=== PATIENT | male | born 1960 | race Caucasian/White ===

== ENCOUNTER 2017-11-30 17:28 | Inpatient (IN) ==
[2017-11-30] MEDS ORDERED: 0.9 % Sodium Chloride 1,000 ML IVC SCH (22:30)
[2017-11-30] MEDS ORDERED: Naloxone 0.4 MG/ML INJ IVP PRN (23:00)
[2017-11-30 23:17] LABS: ABG Base Excess 3 mEq/L (-2 to 3); ABG HCO3 27 mEq/L (21-27); ABG Oxygen Saturation 94 % (95-98); ABG PCO2 41 mmHg (35-45); ABG PH 7.43 pH Units (7.32-7.45); ABG PO2 69 mmHg (85-104); ABG TCO2 29 mEq/L (20-26)
[2017-11-30 23:21] LABS: BUN/Creatinine Ratio 15 (6-26); Blood Urea Nitrogen 9 mg/dL (6-20); Carbon Dioxide 27 mEq/L (23-29); Chloride 86 mEq/L (98-107); Glucose 78 mg/dL (70-105); Osmolality,Calculated 240 (280-300); Potassium 3.7 mEq/L (3.5-5.1); Sodium 116 mEq/L (136-145); eGFR For African Americans > 60 (> 60); eGFR For Non-African Americans > 60 (> 60)
[2017-11-30] MEDS ORDERED: Dextrose Gel 15 GM/37.5 ML TUBE PO PRN ×2 (23:42)
[2017-11-30] MEDS ORDERED: *HR* Dextrose 50 % in Water (Syg) 50 ML SYRINGE IVP PRN (23:42)
[2017-11-30] MEDS ORDERED: D5% in Water 1,000 ML IVC PRN (23:42)
[2017-11-30] MEDS ORDERED: Ipratropium/Albuterol Neb 3 ML IH ONE (23:46)
--- NOTE | 2017-11-30 23:49 | Internal Med History&Physical ---
<Mariano Wu - Last Filed: 12/01/17 01:46> Date of Encounter: 12/01/17 Time of Encounter: 22:30 Assessment and Plan (1) Acute encephalopathy Current visit: Yes Status: Acute acute encephalopathy likely secondary to hyponatremia versus other metabolic derangements Patient is confused and dizzy, not accompanied by any person to corroborate baseline mental status Initial head CT negative, sodium appears chronically low for the past 4 months, however slightly lower than his normal There are no obvious signs of infection or other organic causes We will monitor the patient's vitals, get an ABG, BMP every 6 hours, avoid psychoactive medications The patient will remain nothing by mouth pending speech eval for swallow study in the morning We will attempt to contact shelter in the morning for further clarification. 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 , however he has received no formal workup at this time We will check urine electrolytes, check BMP every 6 hours We will begin the patient on normal saline at a low rate with cold of sodium correction <8mmol in 24h The patient will be nothing by mouth pending swallow study for altered mental status, however then he will be placed on fluid restriction diet for SIADH We will continue home meds including salt tabs and urea Every 4 hours vitals (3) Neutropenia Current visit: Yes Status: Acute Neutropenia without fever, ANC 120 likely secondary to recent initiation of chemotherapy Although the patient is neutropenic, he does not appear to have neutropenia on his previous labs several days ago The patient has no indication of infection at this time, however we will institute neutropenic protocol for precautions At this time, antibiotic prophylaxis is not necessarily recommended due to the short length of time in which he may remain neutropenic We will seek recommendations from oncology Qualifiers: Neutropenia type: other drug-induced Qualified Code(s): D70.2 - Other drug- induced agranulocytosis (4) Lung cancer Current visit: Yes Status: Acute 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 She was managed by medical nephrology, recently began chemotherapy This is likely the source of the patient's hyponatremia, chemotherapy is likely the source of neutropenia We will consult oncology for comanagement in the morning Qualifiers: Laterality: left Lung location: overlapping sites Qualified Code(s): C34.82 - Malignant neoplasm of overlapping sites of left bronchus and lung (5) DVT prophylaxis Current visit: Yes Status: Acute SCDs because patient is thrombocytopenic and cannot tolerate heparin (6) Code status needs review Current visit: Yes Status: Acute Patient remains confused at time of exam. There are no parties present that can elaborate his wishes, and the patient is unable to do so with competence. This topic should be revisited at the patient regains full orientation and mental status, or if evidence of a living will or advanced directive is found. Internal Medicine - H&P: HPI Chief complaint: AMS Admitted From: Emergency Dept Plans for Post Hospital Care: Home History of present illness: Mr. Vasques is a 57 year old male with history of stage IV small cell lung cancer, prior squamous cell carcinoma of the lung, skin cancer which has since been excised, schizophrenia and multiple psychiatric concerns, recent admission for hyponatremia and neutropenia, recent initiation of chemotherapy for small cell lung cancer who presents to the [facility] at the recommendation of his oncologist Dr. Iraheta. According to oncology note the patient began chemotherapy approximately one half weeks ago. He presented to the ED today with altered status not fully understanding why he was there, and some generalized weakness and fatigue. The patient is a long-term member of a shelter. He is not capable of providing a thorough history of present illness. He has no person accompanying him to be able to give information about his case. He has no acute complaints, and says that he's here because of a "misunderstanding". Past Med Surg Social Fam HX - Past Medical History Medical history: arthritis, asthma, cancer, COPD, diabetes, GERD, hypertension, other Psychiatric history: anxiety, depression, panic disorder, PTSD, schizophrenia - Past Surgical History Surgical History: no surgical history, other - Social History Smoking Status: Current every day smoker Smokeless Tobacco Status: Yes Alcohol use: none Drug use: none Internal Medicine - H&P: Meds Albuterol Sulfate [Albuterol Inhaler] 2 puff IH Q6HR 07/21/17 [History] Aspirin [Lo-Dose Aspirin EC] 81 mg PO DAILY 07/21/17 [History] Benztropine Mesylate 1 mg PO BID 07/21/17 [History] Bisacodyl [Dulcolax] 10 mg PO DAILY 07/21/17 [History] Budesonide/Formoterol 160/4.5 [Symbicort 160/4.5] 2 puff IH BIDR 07/21/17 [ History] Cyclobenzaprine HCl 10 mg PO BID 07/21/17 [History] Divalproex (24 HR) [Depakote ER (24 HR)] 1,500 mg PO DAILY 07/21/17 [History] Docusate Sodium [Colace] 200 mg PO TID 07/21/17 [History] Furosemide [Lasix] 40 mg PO DAILY 07/21/17 [History] Lactulose [Enulose] 15 ml PO DAILY 07/21/17 [History] Lisinopril 2.5 mg PO DAILY 07/21/17 [History] Metformin HCl [Glucophage] 500 mg PO BID 07/21/17 [History] Omeprazole [PriLOSEC] 20 mg PO DAILY 07/21/17 [History] Pravastatin Sodium 10 mg PO DAILY 07/21/17 [History] Quetiapine Fumarate [Quetiapine Fumarate ER] 600 mg PO DAILY 07/21/17 [History] RisperiDONE MICROSPHERES [Risperdal Consta] 50 mg IM Q2W 07/21/17 [History] Tamsulosin HCl [Flomax] 0.4 mg PO DAILY 07/21/17 [History] Magnesium Citrate [Citroma] 296 ml PO QWEEK PRN 10/02/17 [History] Multivit-Min/Iron Fum/Folic AC [Tlsrh-Ursqjns-Cpnefeat Tablet] 1 each PO DAILY 10/02/17 [History] Naproxen [Naprosyn] 500 mg PO BID PRN 10/02/17 [History] Testosterone [Fortesta] 60 gm TD DAILY 10/21/17 [History] Urea [[place] Lo 40] 236.6 ml TP DAILY 10/21/17 [History] Dexamethasone [Decadron] 4 mg PO BID #36 tab 11/05/17 [Rx] Magic Mouthwash [Magic Mouthwash BLM] 10 ml PO QID PRN #240 ml 11/05/17 [Rx] Ondansetron [Zofran] 8 mg PO Q8HR #60 tablet 11/05/17 [Rx] Prochlorperazine Maleate [Compazine] 10 mg PO Q8HR PRN #60 tablet 11/05/17 [Rx] Lidocaine/Prilocaine [Emla] 1 appl TP AD PRN #30 gm 11/18/17 [Rx] Sodium Chloride 1,000 mg MC BID #60 tablet.chasity 11/26/17 [Rx] 3 Allergy/AdvReac Type Severity Reaction Status Date / Time No Known Allergies Allergy Verified 11/30/17 11:19 ROS unobtainable: due to mental status All Systems PM: A 10-system review of systems was performed and is negative for pertinent findings except as documented above in the HPI. - Constitutional Vitals: Temp Pulse Resp BP Pulse Ox 98.1 F 88 18 128/79 97 11/30/17 21:03 11/30/17 21:03 11/30/17 21:03 11/30/17 21:03 11/30/17 21:03 Exam: Gen: Vitals noted. No acute distress. AAOx3, but still confused HEENT: oropharynx clear, Normocephalic, atraumatic. Neck: Supple. No obvious adenopathy. Cardiac: RRR, no murmur, +S1/S2 Pulmonary: Diffuse wheezing with decreased lung sounds in the left lower lung. Abdomen: soft, mildly distended, no masses felt on palpation. There is no fluid wave noted. Non-tender to palpatiomn MSK: ROM intact, no joint swelling noted Extremities: no cyanosis or clubbing, 2+ edema in LEs b/l Neuro: A&Ox3, moves all extremities, no focal deficits, pleasantly confused Psych: Flat affect, pleasantly confused Internal Med - H&P Results - Labs CBC & Chem 7: 11/30/17 22:50 Labs: BMP 11/30/17 22:50 Sodium 116 L* Potassium 3.7 Chloride 86 L Carbon Dioxide 27 BUN 9 Creatinine 0.62 L Glucose 78 Calcium 8.0 L - ABG Interpretation ABG results: 11/30/17 23:14 ABG pH 7.43 ABG pCO2 41 ABG pO2 69 L ABG HCO3 27 ABG Total CO2 29 H ABG O2 Saturation 94 L ABG Base Excess 3 <Jessica Santiago - Last Filed: 12/01/17 03:16> Date of Encounter: 12/01/17 Internal Medicine - H&P: HPI History of present illness: Mr. Vasques is a 57 year old male All Systems PM: A 10-system review of systems was performed and is negative for pertinent findings except as documented above in the HPI. - Constitutional Vitals: Temp Pulse Resp BP Pulse Ox 98.1 F 89 17 121/73 92 11/30/17 23:59 11/30/17 23:59 12/01/17 01:00 11/30/17 23:59 12/01/17 01:00 Internal Med - H&P Results - Labs CBC & Chem 7: 11/30/17 22:50 Labs: BMP 11/30/17 22:50 Sodium 116 L* Potassium 3.7 Chloride 86 L Carbon Dioxide 27 BUN 9 Creatinine 0.62 L Glucose 78 Calcium 8.0 L - ABG Interpretation ABG results: 11/30/17 23:14 ABG pH 7.43 ABG pCO2 41 ABG pO2 69 L ABG HCO3 27 ABG Total CO2 29 H ABG O2 Saturation 94 L ABG Base Excess 3 - Impressions ITS Impressions Head CT 11/30/17 22:27 IMPRESSION: No acute intracranial abnormality. D/ / Darlene Chin Cha, MD / Darlene Chin Cha, MD Interpreting Provider: Darlene Chin Cha, MD - Attending Attestation I have seen and examined this patient independently. I have discussed with resident physician Dr. Wu regarding the management plan. Agree with the documentation.
[2017-12-01] MEDS: Ondansetron ODT 4 MG TAB.RAPDIS PO SCH ×3 (00:17→18:45)
[2017-12-01 05:45] LABS: Mean Corpuscular Volume 83.4 fL (83.0-100.0)
[2017-12-01 05:47] LABS: Hematocrit 25.6 % (37.5-50.1); Hemoglobin 8.7 g/dL (12.9-16.9); Mean Corpuscular Hemoglobin 28.3 pg (28.0-33.3); Mean Platelet Volume 10.5 fL (9.4-12.4); Monocytes # 0.1 K/mcL (0.0-1.3); Red Blood Count 3.07 M/mcL (4.19-5.50); Red Cell Distribution Width 14.6 % (11.5-14.5)
[2017-12-01 05:54] LABS: Platelet Count 32 K/mcL (140-400)
[2017-12-01 06:17] LABS: BUN/Creatinine Ratio 19 (6-26); Blood Urea Nitrogen 11 mg/dL (6-20); Calcium 8.3 mg/dL (8.6-10.3); Carbon Dioxide 26 mEq/L (23-29); Chloride 87 mEq/L (98-107); Glucose 79 mg/dL (70-105); Osmolality,Calculated 242 (280-300); Potassium 3.8 mEq/L (3.5-5.1); Sodium 117 mEq/L (136-145); eGFR For African Americans > 60 (> 60); eGFR For Non-African Americans > 60 (> 60)
[2017-12-01 06:25] LABS: Lymphocytes # 0.8 K/mcL (0.6-4.6); Neutrophils # 0.4 K/mcL (1.6-8.9); Platelet Estimate Decreased (Normal)
[2017-12-01] MEDS: Insulin LISPRO 300 UNITS/3 ML VIAL SQ SCH ×4 (07:30→22:09)
[2017-12-01] MEDS ORDERED: UREA TP SCH (09:00)
[2017-12-01] MEDS ORDERED: Acetaminophen 325 MG TABLET PO PRN (10:09)
[2017-12-01] MEDS: Budesonide/Formoterol 160/4.5 MDI IH SCH ×2 (10:28→20:22)
[2017-12-01] MEDS: Furosemide 40 MG TABLET PO SCH (10:59)
[2017-12-01] MEDS: Lactulose Oral Soln 20 GM/30 ML UDC PO SCH (10:59)
[2017-12-01] MEDS: Aspirin Enteric Coated 81 MG Tablet PO SCH (11:01)
[2017-12-01] MEDS: Divalproex (24 HR) 500 MG TABLET PO SCH (11:01)
--- NOTE | 2017-12-01 11:02 | Internal Med Progress Note ---
Date of Encounter: 12/01/17 Time of Encounter: 10:59 - Assessment and plan (1) Acute encephalopathy Current Visit: Yes Status: Acute Assessment and plan: Metablolic encephalopathy. Seems to have resolved now. Likely due to hyponatremia. CT head is negative. We will continue to monitor. (2) Hyponatremia Current Visit: Yes Status: Acute Assessment and plan: Likely secondary to SIADH. Patient seems to have had issues with hyponatremia lately although it is not as bad as this hospitalization. We will stop IV fluids. He has salt tabs ordered. Apparently he takes that at home and I am not sure if she was taking it. Will put patient on fluid strictures. Consult nephrology. Follow up on rest of workup including urine sodium and urine osmolality. We will check sodium every 6 hours. (3) Neutropenia Current Visit: Yes Status: Acute Assessment and plan: Likely secondary to chemotherapy. ANC is low and noted. Afebrile. We will leave any prophylactic antibiotics recommendations to oncology. Qualifiers: Neutropenia type: other drug-induced Qualified Code(s): D70.2 - Other drug- induced agranulocytosis (4) Lung cancer Current Visit: Yes Status: Acute Assessment and plan: Follows up with oncology. They have been counseled patient. The patient has stage IV cancer. He is already on chemotherapy. Qualifiers: Laterality: left Lung location: overlapping sites Qualified Code(s): C34.82 - Malignant neoplasm of overlapping sites of left bronchus and lung (5) Diabetes Current Visit: Yes Status: Acute Assessment and plan: Continue insulin sliding scale. Continue Accu-Cheks. Qualifiers: Diabetes mellitus type: type 2 Diabetes mellitus complication status: without complication Diabetes mellitus shelter insulin use: without termination clerk use Qualified Code(s): E11.9 - Type 2 diabetes mellitus without complications (6) Hypertension Current Visit: Yes Status: Acute Assessment and plan: The pressure stable. Continue lisinopril. Qualifiers: Hypertension type: essential hypertension Qualified Code(s): I10 - Essential (primary) hypertension (7) DVT prophylaxis Current Visit: Yes Status: Acute Assessment and plan: Platelets are 32. We will put the patient in SCDs. - Subjective Interval history: Patient was seen and examined. Admitted yesterday with what sounds like confusion. Found to have hyponatremia. Has a history of small cell lung cancer with metastasis. Recently started chemotherapy. Denies any pain. Afebrile. No acute events. - Constitutional Vitals: Temp Pulse Resp BP Pulse Ox 97.7 F 81 18 121/80 94 12/01/17 07:02 12/01/17 07:02 12/01/17 10:32 12/01/17 07:02 12/01/17 10:32 Exam: GEN: NAD CVS: RRR. S1, S2, No m/r/g RESP: CTAB ABD: Soft, NT, ND, +BS EXT: No edema. 2+ DP. No rashes NEURO: Nonfocal Internal Medicine: Result - Labs CBC & Chem 7: 12/01/17 05:01 12/01/17 12:36 Labs: Short CBC 12/01/17 Range/Units 05:01 WBC 1.3 L D (4.3-11.1) K/mcL Hgb 8.7 L (12.9-16.9) g/dL Hct 25.6 L (37.5-50.1) % Plt Count 32 L (140-400) K/mcL Neutrophils # 0.4 L (1.6-8.9) K/mcL BMP 11/30/17 12/01/17 22:50 05:01 Sodium 116 L* 117 L* Potassium 3.7 3.8 Chloride 86 L 87 L Carbon Dioxide 27 26 BUN 9 11 Creatinine 0.62 L 0.59 L Glucose 78 79 Calcium 8.0 L 8.3 L - ABG Interpretation ABG results: ABG ABG pH 7.43 pH Units (7.32-7.45) 11/30/17 23:14 ABG pCO2 41 mmHg (35-45) 11/30/17 23:14 ABG pO2 69 mmHg (85-104) L 11/30/17 23:14 ABG O2 Saturation 94 % (95-98) L 11/30/17 23:14 - Impressions Impressions Head CT 11/30/17 22:27 IMPRESSION: No acute intracranial abnormality. D/ / Darlene Chin Cha, MD / Darlene Chin Cha, MD Interpreting Provider: Darlene Chin Cha, MD Consult Discharge Plan - Plan [facility]: [facility] [Primary Care Provider[facility] -
[2017-12-01 11:49] LABS: BUN/Creatinine Ratio 18 (6-26); Blood Urea Nitrogen 11 mg/dL (6-20); Calcium 8.5 mg/dL (8.6-10.3); Carbon Dioxide 28 mEq/L (23-29); Chloride 85 mEq/L (98-107); Glucose 111 mg/dL (70-105); Osmolality,Calculated 242 (280-300); Potassium 3.7 mEq/L (3.5-5.1); Sodium 116 mEq/L (136-145); eGFR For African Americans > 60 (> 60); eGFR For Non-African Americans > 60 (> 60)
--- NOTE | 2017-12-01 13:39 | Oncology Inp Consult Note ---
<Mirna Koo L - Last Filed: 12/01/17 16:38> Date of Encounter: 12/01/17 Time of Encounter: 13:39 Assessment and Plan (1) Lung cancer Status: Acute Assessment and plan: He is s/p C1 chemotherapy 11/18/17 with carbo/VP16 and neulasta received on 11/24 Pancytopenia secondary to chemotherapy treatment, neutrophils 0.4, no s/s infection and afebrile. NO role for ATB treatment at this current time. Continue to monitor counts and need for potential transfusions Admitted with AMS/acute encephalopathy, hyponatremia and pancytopenia. Hyponatremia-Na 116. reviewed nephrology consult, currently receiving sodium chloride tabs 1 gram BID, continue to replace. Awaiting: Urine sodium and urine osmolarity, TSH, cortisol level, UA, serum osmolarity, and uric acid Likely secondary to carboplatin and presumed SIADH associated with SCLC CT head 11/30/17 No acute intracranial abnormality. CXR shows grossly similar appearance of a left suprahilar and right base opacity with no new focal consolidations or pleural effusions. Please refer to Dr. Dumont attestation below for further details Qualifiers: Laterality: left Lung location: overlapping sites Qualified Code(s): C34.82 - Malignant neoplasm of overlapping sites of left bronchus and lung - Data of Consult Patient: known to practice within the last 3 years Consult date: 12/01/17 Requesting Physician: Dot Valencia MD Primary Care Provider: PCP [place] - Consult Narrative Reason for consult: metastatic small cell lung cancer s/p bx of adrenal gland History of present illness: Mr. Vasques is a 57 year old male with past medical history siginifcant for arthritis, asthma, lung cancer-(squamous cell carcinoma)-s/p RT in 2016 at [facility], COPD, hypertension, anxiety, depression, panic disorder, PTSD, schizophrenia. He reports he has schizophrenia and follows with mental health personnel at the [facility]. He is a current everyday smoker denies alcohol and recreational drug use use. Patient of Dr. Iraheta with newly diagnosed small cell lung cancer. He lives in a senior living in [place], [place]. He was hospitalized in Oct 2017 with leukocytosis, hyponatremia and feeling generally weak. He underwent a CT scan of the chest at that visit, CT angiogram 10/18 showed left lung mass as well as amorphous soft, enlargement of left hilar and mediastinal lymph nodes as well as development of left adrenal gland metastasis.Indeterminate right hepatic lobe lesion several tiny left upper subcentimeter nodules, inflammatory or neoplastic. MRI brain no evidence for mets PET imaging--from [facility]--reviewed in tumor board, Left lung uptake , uptake mulpiple sites mediastinal abd adenoapthy, adrenal uptake and skeletal lesions. He has had 40 pound weight loss over the last 6 months. Very independent in ADLs. He had skin cancer removed from left side of his face and nasal area with disfigurement. Squamous cell cancer of skin in the earlobe, nasal area and back and the chest skin area. He underwent CT guided bx adrenal gland that showed features of small cell lung cancer. Immunostains pending. Final path is given as small cell lung cancer () He is s/p C1 chemotherapy 11/18/17 with carbo/VP16. Admitted with AMS/acute encephalopathy, hyponatremia and pancytopenia. Past Med Surg Social Fam HX - Past Medical History Medical history: arthritis, asthma, cancer, COPD, diabetes, GERD, hypertension, other Psychiatric history: anxiety, depression, panic disorder, PTSD, schizophrenia - Past Surgical History Surgical History: no surgical history, other - Social History Smoking Status: Current every day smoker Packs per day: 1 Smokeless Tobacco Status: Yes Alcohol use: none Drug use: none Medications and Allergies Albuterol Sulfate [Albuterol Inhaler] 2 puff IH Q6HR 07/21/17 [History] Aspirin [Lo-Dose Aspirin EC] 81 mg PO DAILY 07/21/17 [History] Benztropine Mesylate 1 mg PO BID 07/21/17 [History] Bisacodyl [Dulcolax] 10 mg PO DAILY 07/21/17 [History] Budesonide/Formoterol 160/4.5 [Symbicort 160/4.5] 2 puff IH BIDR 07/21/17 [ History] Cyclobenzaprine HCl 10 mg PO BID 07/21/17 [History] Divalproex (24 HR) [Depakote ER (24 HR)] 1,500 mg PO DAILY 07/21/17 [History] Docusate Sodium [Colace] 200 mg PO TID 07/21/17 [History] Furosemide [Lasix] 40 mg PO DAILY 07/21/17 [History] Lactulose [Enulose] 15 ml PO DAILY 07/21/17 [History] Lisinopril 2.5 mg PO DAILY 07/21/17 [History] Metformin HCl [Glucophage] 500 mg PO BID 07/21/17 [History] Omeprazole [PriLOSEC] 20 mg PO DAILY 07/21/17 [History] Pravastatin Sodium 10 mg PO DAILY 07/21/17 [History] Quetiapine Fumarate [Quetiapine Fumarate ER] 600 mg PO DAILY 07/21/17 [History] RisperiDONE MICROSPHERES [Risperdal Consta] 50 mg IM Q2W 07/21/17 [History] Tamsulosin HCl [Flomax] 0.4 mg PO DAILY 07/21/17 [History] Magnesium Citrate [Citroma] 296 ml PO QWEEK PRN 10/02/17 [History] Multivit-Min/Iron Fum/Folic AC [Jvago-Bvpvkad-Iayrywdg Tablet] 1 each PO DAILY 10/02/17 [History] Naproxen [Naprosyn] 500 mg PO BID PRN 10/02/17 [History] Testosterone [Fortesta] 60 gm TD DAILY 10/21/17 [History] Urea [[place] Lo 40] 236.6 ml TP DAILY 10/21/17 [History] Dexamethasone [Decadron] 4 mg PO BID #36 tab 11/05/17 [Rx] Magic Mouthwash [Magic Mouthwash BLM] 10 ml PO QID PRN #240 ml 11/05/17 [Rx] Ondansetron [Zofran] 8 mg PO Q8HR #60 tablet 11/05/17 [Rx] Prochlorperazine Maleate [Compazine] 10 mg PO Q8HR PRN #60 tablet 11/05/17 [Rx] Lidocaine/Prilocaine [Emla] 1 appl TP AD PRN #30 gm 11/18/17 [Rx] Sodium Chloride 1,000 mg MC BID #60 tablet.chasity 11/26/17 [Rx] 3 Allergy/AdvReac Type Severity Reaction Status Date / Time No Known Allergies Allergy Verified 11/30/17 11:19 ROS unobtainable: due to mental status Review of systems: ROS obtained but difficult due to mental status and patient is also quite fatigued at this time although he will arouse to voice for moments at time, Oncology - Exam - Constitutional Vitals: Temp Pulse Resp BP Pulse Ox 97.4 F L 87 16 93/60 96 12/01/17 11:47 12/01/17 11:47 12/01/17 11:47 12/01/17 11:47 12/01/17 11:47 General appearance: cooperative, no acute distress, no febrile - Head Head exam: Present: atraumatic - Respiratory Respiratory exam: Present: decreased breath sounds, wheezes. Absent: respiratory distress - Cardiovascular Cardiovascular exam: Present: RRR, +S1, +S2 - GI/Abdominal GI/Abdominal exam: Present: distended, normal bowel sounds, soft. Absent: tenderness - Extremities Exam Extremities exam: Present: pedal edema. Absent: calf tenderness Additional comments: 2-3+ BLE edema - Neurological Exam Neurological exam: Present: alert, no focal deficits, strengths equal and symetr throughout, speech deficit. Absent: facial droop Additional comments: oriented to person, reoriented to place/time. drowsy but will awake to voice. speech deficit is apparently unchanged according to previous reports, no focal weakness noted - Psychiatric Psychiatric exam: Present: flat affect - Skin Skin exam: Present: pallor, warm Oncology - Results Labs: Short CBC 12/01/17 Range/Units 05:01 WBC 1.3 L D (4.3-11.1) K/mcL Hgb 8.7 L (12.9-16.9) g/dL Hct 25.6 L (37.5-50.1) % Plt Count 32 L (140-400) K/mcL Neutrophils # 0.4 L (1.6-8.9) K/mcL BMP 11/30/17 12/01/17 12/01/17 22:50 05:01 10:36 Sodium 116 L* 117 L* 116 L* Potassium 3.7 3.8 3.7 Chloride 86 L 87 L 85 L Carbon Dioxide 27 26 28 BUN 9 11 11 Creatinine 0.62 L 0.59 L 0.62 L Glucose 78 79 111 H Calcium 8.0 L 8.3 L 8.5 L Consult Discharge Plan - Plan [facility]: [facility] Care Provider[facility] - <Thomas Gibbs - Last Filed: 12/02/17 08:51> Date of Encounter: 12/02/17 - Data of Consult Requesting Physician: Dot Valencia MD Primary Care Provider: [facility] - Consult Narrative History of present illness: Mr. Vasques is a 57 year old male knoiwn to us with small cell lung ca metastatic s /p C1 carbo/VP16 hospitalized for dizziness, low sodium. Sodium slowly improving on 0.9NS, supplementation, free water restriction-urine lytes per nephrology, recommendations appreciated. Cytopenia s/p neulasta in cliniuc. Will dose reduce with C2 Rx due to cytopenia. I examined this patient and my medical decision-making was reviewed with the Advanced Practice Nurse, Mirna Koo. I agree with the documented findings, disposition and treatment plan as described except to the extent set forth below. Oncology - Exam - Constitutional Vitals: Temp Pulse Resp BP Pulse Ox 97.3 F L 99 16 92/58 92 12/02/17 08:39 12/02/17 08:39 12/02/17 08:39 12/02/17 08:39 12/02/17 08:39 Oncology - Results Labs: Short CBC 12/02/17 Range/Units 02:57 WBC 1.0 L* (4.3-11.1) K/mcL Hgb 8.4 L (12.9-16.9) g/dL Hct 24.4 L (37.5-50.1) % Plt Count 36 L (140-400) K/mcL Neutrophils # 0.4 L (1.6-8.9) K/mcL BMP 12/01/17 12/01/17 12/01/17 10:36 12:36 18:26 Sodium 116 L* 117 L* 119 L* Potassium 3.7 Chloride 85 L Carbon Dioxide 28 BUN 11 Creatinine 0.62 L Glucose 111 H Calcium 8.5 L 12/02/17 02:57 Sodium 120 L* Potassium 3.9 Chloride 91 L Carbon Dioxide 28 BUN 10 Creatinine 0.81 Glucose 108 H Calcium 7.9 L Urine 12/01/17 Range/Units 20:46 Urine Color Yellow (Yellow) Urine Clarity Clear (Clear) Urine pH 7.0 (5.0-8.0) pH Units Ur Specific [place] 1.015 (1.010-1.025) Urine Protein Negative (Neg-Trace) mg/dL Urine Glucose (UA) Normal (Normal) mg/dL
--- NOTE | 2017-12-01 13:41 | Nephrology Consult Note ---
Addendum entered and electronically signed by Joana Mejia CNP 12/01/17 13: 49: Agree with salt tabs-continue Original Note: <Joana Mejia - Last Filed: 12/01/17 13:48> Date of Encounter: 12/01/17 Time of Encounter: 13:39 Assessment and Plan (1) Hyponatremia Status: Acute Na+ 116 History of chronic hyponatremia Need strict I/Os Agree with stopping IV saline fluids Urine sodium and urine osmolarity has been ordered-awaiting results Will obtain TSH, cortisol level, UA, serum osmolarity, and uric acid (2) Acute encephalopathy Status: Acute per primary team (3) Lung cancer Status: Acute per oncology team Qualifiers: Laterality: left Lung location: overlapping sites Qualified Code(s): C34.82 - Malignant neoplasm of overlapping sites of left bronchus and lung History of Present Illness - Reason for Consult Consult date: 12/01/17 - Chief Complaint hyponatremia, acute encephalopathy - History of Present Illness Mr. Vasques is a 57 year old male with history of stage IV small cell lung cancer, prior squamous cell carcinoma of the lung, skin cancer which has since been excised, schizophrenia and multiple psychiatric concerns, recent admission for hyponatremia and neutropenia, recent initiation of chemotherapy for small cell lung cancer who presents to the [place] ED with altered status, not fully understanding why he was there, and some generalized weakness and fatigue. The patient is a long-term member of a [employer]. He is not capable of providing a thorough history of present illness. Nephrology has been consulted for hyponatremia. Past Med Surg Social Fam HX - Past Medical History Medical history: arthritis, asthma, cancer, COPD, diabetes, GERD, hypertension, other Psychiatric history: anxiety, depression, panic disorder, PTSD, schizophrenia - Past Surgical History Surgical History: no surgical history, other - Social History Smoking Status: Current every day smoker Packs per day: 1 Smokeless Tobacco Status: Yes Alcohol use: none Drug use: none Medications and Allergies Albuterol Sulfate [Albuterol Inhaler] 2 puff IH Q6HR 07/21/17 [History] Aspirin [Lo-Dose Aspirin EC] 81 mg PO DAILY 07/21/17 [History] Benztropine Mesylate 1 mg PO BID 07/21/17 [History] Bisacodyl [Dulcolax] 10 mg PO DAILY 07/21/17 [History] Budesonide/Formoterol 160/4.5 [Symbicort 160/4.5] 2 puff IH BIDR 07/21/17 [ History] Cyclobenzaprine HCl 10 mg PO BID 07/21/17 [History] Divalproex (24 HR) [Depakote ER (24 HR)] 1,500 mg PO DAILY 07/21/17 [History] Docusate Sodium [Colace] 200 mg PO TID 07/21/17 [History] Furosemide [Lasix] 40 mg PO DAILY 07/21/17 [History] Lactulose [Enulose] 15 ml PO DAILY 07/21/17 [History] Lisinopril 2.5 mg PO DAILY 07/21/17 [History] Metformin HCl [Glucophage] 500 mg PO BID 07/21/17 [History] Omeprazole [PriLOSEC] 20 mg PO DAILY 07/21/17 [History] Pravastatin Sodium 10 mg PO DAILY 07/21/17 [History] Quetiapine Fumarate [Quetiapine Fumarate ER] 600 mg PO DAILY 07/21/17 [History] RisperiDONE MICROSPHERES [Risperdal Consta] 50 mg IM Q2W 07/21/17 [History] Tamsulosin HCl [Flomax] 0.4 mg PO DAILY 07/21/17 [History] Magnesium Citrate [Citroma] 296 ml PO QWEEK PRN 10/02/17 [History] Multivit-Min/Iron Fum/Folic AC [Qayxi-Tnlvztj-Snisxxtx Tablet] 1 each PO DAILY 10/02/17 [History] Naproxen [Naprosyn] 500 mg PO BID PRN 10/02/17 [History] Testosterone [Fortesta] 60 gm TD DAILY 10/21/17 [History] Urea [Nerissa Lo 40] 236.6 ml TP DAILY 10/21/17 [History] Dexamethasone [Decadron] 4 mg PO BID #36 tab 11/05/17 [Rx] Magic Mouthwash [Magic Mouthwash BLM] 10 ml PO QID PRN #240 ml 11/05/17 [Rx] Ondansetron [Zofran] 8 mg PO Q8HR #60 tablet 11/05/17 [Rx] Prochlorperazine Maleate [Compazine] 10 mg PO Q8HR PRN #60 tablet 11/05/17 [Rx] Allopurinol [Zyloprim 100 MG] 300 mg PO DAILY 12/02/17 [History] Tolvaptan [Samsca] 15 mg PO DAILY #30 tablet 12/07/17 [Rx] levoFLOXacin [Levaquin] 500 mg PO DAILY #3 tablet 12/07/17 [Rx] 3 Allergy/AdvReac Type Severity Reaction Status Date / Time No Known Allergies Allergy Verified 11/30/17 11:19 Review of Systems All Systems: reviewed and no additional remarkable complaints except as stated Constitutional: fatigue, weakness Cardiovascular: no chest pain, no dyspnea Gastrointestinal: no diarrhea, no vomiting Neurological: behavioral changes, confusion Exam - Vital Signs Vital signs: Initial Vital Signs Temp Pulse Resp BP Pulse Ox 98.1 F 88 18 128/79 97 11/30/17 21:03 11/30/17 21:03 11/30/17 21:03 11/30/17 21:03 11/30/17 21:03 Vital Signs - Last 8 Hours Temp Pulse Resp BP Pulse Ox 12/01/17 11:47 97.4 F L 87 16 93/60 96 12/01/17 10:32 18 94 12/01/17 07:02 97.7 F 81 17 121/80 96 Intake and Output 11/30/17 12/01/17 12/01/17 23:59 07:59 15:59 Intake Total 0 / 0 Balance 0 / 0 Intake: Oral 0 / 0 Other: Meal npo Weight 85.757 kg Blood Glucose* 79 74 107 - General Appearance General appearance: chronically ill, frail EENT: ATNC Neck: supple Respiratory: clear Cardiology: edema, normal S1, normal S2 Gastrointestinal: no guarding Integumentary: warm and dry Neurologic: confused, aphasic Results - Lab Results 12/01/17 05:01 12/01/17 12:36 Most recent lab results ABG pH 7.43 pH Units (7.32-7.45) 11/30/17 23:14 ABG pCO2 41 mmHg (35-45) 11/30/17 23:14 ABG pO2 69 mmHg (85-104) L 11/30/17 23:14 ABG HCO3 27 mEq/L (21-27) 11/30/17 23:14 ABG O2 Saturation 94 % (95-98) L 11/30/17 23:14 Calcium 8.5 mg/dL (8.6-10.3) L 12/01/17 10:36 Consult Discharge Plan - Plan Instructions: Hyponatremia (DC), Chronic Hypertension (DC) Additional Instructions: 1.5 L Fluid restriction F/u with nephrology next week. Check labs on Referrals: Cameron Stanton MD [Partnered Physician] - (1 week) [facility] - 12/16/17 10:45 am (Please follow up as schedule...) Prescriptions: levoFLOXacin [Levaquin] 500 mg PO DAILY #3 tablet Tolvaptan [Samsca] 15 mg PO DAILY #30 tablet <Loly Garcia - Last Filed: 12/09/17 13:36> Date of Encounter: 12/01/17 Exam - Vital Signs Vital signs: Initial Vital Signs Temp Pulse Resp BP Pulse Ox 98.1 F 88 18 128/79 97 11/30/17 21:03 11/30/17 21:03 11/30/17 21:03 11/30/17 21:03 11/30/17 21:03 Results - Lab Results 12/07/17 04:16 12/07/17 04:16 Most recent lab results ABG pH 7.41 pH Units (7.32-7.45) 12/02/17 16:03 ABG pCO2 42 mmHg (35-45) 12/02/17 16:03 ABG pO2 38 mmHg (85-104) L* 12/02/17 16:03 ABG HCO3 27 mEq/L (21-27) 12/02/17 16:03 ABG O2 Saturation 72 % (95-98) L 12/02/17 16:03 Calcium 8.7 mg/dL (8.6-10.3) 12/07/17 04:16 Urine Creatinine 83 mg/dL 12/01/17 20:46 Urine Sodium 67.1 mEq/L 12/01/17 20:46 - Attending Attestation I examined this patient and my medical decision-making was reviewed with the Resident Physician/CALENDER MACHINE OPERATOR. I agree with the documented findings, disposition and treatment plan as described except to the extent set forth below. Pt seen and examined with pMH of small cell lung cancer, schizophrenia and chronic hyponatremia admitted with altered mental status with sodium of 116. Previou sodium levels have been low in the recent past but not as low as this time. Pt is a poor historian and most of infomation obtained from his records. No N/V/D noted. Suspect SIADH given historian in the setting of acute on chronic hyponatremia. Agree with stopping IVF, not used to treat ADH excess. agree with salt tabs and fluid restriction. will check urine and serum osmolality to verify diagnosis along with uric acid, TSH and cortisol levels. Will follwo with you with sreial sodium checks.
[2017-12-01 15:45] LABS: Thyroid Stimulating Hormone 0.584 mcIU/mL (0.340-5.600); Uric Acid 3.1 mg/dL (2.3-7.6)
[2017-12-01 21:07] LABS: Bilirubin,Urine Negative (Negative); Blood,Urine Negative (Negative); Clarity,Urine Clear (Clear); Color,Urine Yellow (Yellow); Glucose,Urine (UA) Normal (Normal); Ketones,Urine Trace mg/dL (Negative); Leukocyte Esterase,Urine Negative (Negative); Nitrite,Urine Negative (Negative); Protein,Urine Negative (Neg-Trace); Specific Gravity,Urine 1.015 (1.010-1.025); Urobilinogen,Urine Normal (Normal)
[2017-12-01 21:47] LABS: Potassium,Urine 24.8 mEq/L; Sodium, Urine 67.1 mEq/L
[2017-12-01] MEDS ORDERED: 0.9 % Sodium Chloride 1,000 ML IVC ONE (22:18)
[2017-12-02] MEDS: 0.9 % Sodium Chloride 1,000 ML IVC SCH ×3 (00:19→13:39)
[2017-12-02] MEDS: Ondansetron ODT 4 MG TAB.RAPDIS PO SCH ×4 (00:26→23:43)
--- NOTE | 2017-12-02 02:08 | Event Note ---
Date of Encounter: 12/01/17 Time of Encounter: 21:20 I was called by the nurse to bedside for this patient due to rapid heart rate in sinus tachycardia inserted on telemetry. At that time I requested the patient receive immediate sets of vital signs, and went to his bed to examine him. The patient was demonstrated to have a fever with a temperature of 100.9, was tachycardic, and had had a significant drop in BP. I ordered a stat lactic acid, blood cultures, and immediately started IV Zofran because of the fever developed in this neutropenic patient. Additionally, I ordered tylenol, 1L ns bolus with 100ml/hr maintenance fluids following. The patient's HR returned to normal range, and temperature became afebrile. The patient did remain hypotensive by comparison to baseline, however it showed some improvement. I will continue to monitor the patient overnight very closely.
[2017-12-02 04:26] LABS: Mean Corpuscular HGB Conc 34.4 g/dL (31.6-35.5)
[2017-12-02 04:28] LABS: Hematocrit 24.4 % (37.5-50.1); Hemoglobin 8.4 g/dL (12.9-16.9); Mean Corpuscular Hemoglobin 28.5 pg (28.0-33.3); Mean Corpuscular Volume 82.7 fL (83.0-100.0); Mean Platelet Volume 11.2 fL (9.4-12.4); Monocytes # 0.1 K/mcL (0.0-1.3); Nucleated Red Blood Cells 5.2 /100 WBC (0); Red Blood Count 2.95 M/mcL (4.19-5.50); Red Cell Distribution Width 14.3 % (11.5-14.5)
[2017-12-02 04:29] LABS: Platelet Count 36 K/mcL (140-400)
[2017-12-02 04:55] LABS: BUN/Creatinine Ratio 12 (6-26); Blood Urea Nitrogen 10 mg/dL (6-20); Calcium 7.9 mg/dL (8.6-10.3); Carbon Dioxide 28 mEq/L (23-29); Chloride 91 mEq/L (98-107); Glucose 108 mg/dL (70-105); Osmolality,Calculated 250 (280-300); Potassium 3.9 mEq/L (3.5-5.1); Sodium 120 mEq/L (136-145); eGFR For African Americans > 60 (> 60); eGFR For Non-African Americans > 60 (> 60)
[2017-12-02 05:06] LABS: Lymphocytes # 0.5 K/mcL (0.6-4.6); Neutrophils # 0.4 K/mcL (1.6-8.9); Platelet Estimate Marked Decrease (Normal)
[2017-12-02 05:07] LABS: Hypochromasia Present (Not Present)
[2017-12-02] MEDS: Budesonide/Formoterol 160/4.5 MDI IH SCH ×2 (08:07→20:36)
[2017-12-02] MEDS: Insulin LISPRO 300 UNITS/3 ML VIAL SQ SCH ×4 (09:23→21:41)
[2017-12-02] MEDS: Lactulose Oral Soln 20 GM/30 ML UDC PO SCH (09:24)
[2017-12-02] MEDS: Aspirin Enteric Coated 81 MG Tablet PO SCH (09:24)
[2017-12-02] MEDS: Furosemide 40 MG TABLET PO SCH (09:25)
[2017-12-02] MEDS: Divalproex (24 HR) 500 MG TABLET PO SCH (09:25)
--- NOTE | 2017-12-02 12:11 | Internal Med Progress Note ---
Date of Encounter: 12/02/17 Time of Encounter: 12:05 - Assessment and plan (1) Acute encephalopathy Current Visit: Yes Status: Acute Assessment and plan: Metablolic encephalopathy. Seems to have resolved now. Likely due to hyponatremia. CT head is negative. We will continue to monitor. (2) Hyponatremia Current Visit: Yes Status: Acute Assessment and plan: Likely secondary to SIADH. Patient seems to have had issues with hyponatremia lately although it is not as bad as this hospitalization. This is slowly improving. Sodium is 120. I did stop his IV fluids yesterday however was restarted overnight given hypotension. Has a definitively stopping that. We will see what his sodium trends throughout the day. We will follow up with nephrology's recommendations. I see that he is also ordered Lasix but will hold that this morning given the low blood pressure. He has salt tabs ordered. Apparently he takes that at home and I am not sure if she was taking it. Continue with fluid strictures. Consult nephrology. Follow up on rest of workup including urine sodium and urine osmolality. We will check sodium every 6 hours. (3) Neutropenia Current Visit: Yes Status: Inactive Assessment and plan: The patient did have neutropenic fever. Zosyn has been started overnight. Blood cultures have been collected. UA is negative. We will check a chest x- ray. Likely secondary to chemotherapy. ANC is low and noted. Qualifiers: Neutropenia type: other drug-induced Qualified Code(s): D70.2 - Other drug- induced agranulocytosis (4) Lung cancer Current Visit: Yes Status: Acute Assessment and plan: Follows up with oncology. Oncology is consulted. The patient has stage IV cancer. He is already on chemotherapy. Qualifiers: Laterality: left Lung location: overlapping sites Qualified Code(s): C34.82 - Malignant neoplasm of overlapping sites of left bronchus and lung (5) Diabetes Current Visit: Yes Status: Acute Assessment and plan: Continue insulin sliding scale. Continue Accu-Cheks. Qualifiers: Diabetes mellitus type: type 2 Diabetes mellitus complication status: without complication Diabetes mellitus buttermaker insulin use: without buttermaker use Qualified Code(s): E11.9 - Type 2 diabetes mellitus without complications (6) Hypertension Current Visit: Yes Status: Acute Assessment and plan: Has low blood pressure. Hold lisinopril. Hold Lasix. Qualifiers: Hypertension type: essential hypertension Qualified Code(s): I10 - Essential (primary) hypertension (7) DVT prophylaxis Current Visit: Yes Status: Acute Assessment and plan: Has thrombocytopenia. SCDs. - Subjective Interval history: Patient was seen and examined. He had a fever and his blood pressure dropped. He was started on IV fluids and given a bolus. This morning is afebrile. His blood pressures is marginal however, it is in the 90s systolically. Denies any cough.. Admitted 11/30 with what sounds like confusion. This has resolved now. Found to have hyponatremia and nephrology is following.. Has a history of small cell lung cancer with metastasis and oncology is following. Recently started chemotherapy. - Constitutional Vitals: Temp Pulse Resp BP Pulse Ox 97.3 F L 99 16 92/58 92 12/02/17 08:39 12/02/17 08:39 12/02/17 08:39 12/02/17 08:39 12/02/17 08:39 Exam: GEN: NAD CVS: RRR. S1, S2, No m/r/g RESP: CTAB ABD: Soft, NT, ND, +BS EXT: anasarca. 2+ DP. No rashes NEURO: Nonfocal Internal Medicine: Result - Labs CBC & Chem 7: 12/02/17 02:57 12/02/17 02:57 Labs: Short CBC 12/02/17 Range/Units 02:57 WBC 1.0 L* (4.3-11.1) K/mcL Hgb 8.4 L (12.9-16.9) g/dL Hct 24.4 L (37.5-50.1) % Plt Count 36 L (140-400) K/mcL Neutrophils # 0.4 L (1.6-8.9) K/mcL BMP 12/01/17 12/01/17 12/01/17 10:36 12:36 18:26 Sodium 116 L* 117 L* 119 L* Potassium 3.7 Chloride 85 L Carbon Dioxide 28 BUN 11 Creatinine 0.62 L Glucose 111 H Calcium 8.5 L 12/02/17 02:57 Sodium 120 L* Potassium 3.9 Chloride 91 L Carbon Dioxide 28 BUN 10 Creatinine 0.81 Glucose 108 H Calcium 7.9 L Urine 12/01/17 Range/Units 20:46 Urine Color Yellow (Yellow) Urine Clarity Clear (Clear) Urine pH 7.0 (5.0-8.0) pH Units Ur Specific [place] 1.015 (1.010-1.025) Urine Protein Negative (Neg-Trace) mg/dL Urine Glucose (UA) Normal (Normal) mg/dL - ABG Interpretation ABG results: ABG ABG pH 7.43 pH Units (7.32-7.45) 11/30/17 23:14 ABG pCO2 41 mmHg (35-45) 11/30/17 23:14 ABG pO2 69 mmHg (85-104) L 11/30/17 23:14 ABG O2 Saturation 94 % (95-98) L 11/30/17 23:14 Consult Discharge Plan - Plan [facility]errals: [facility] Provider[facility] -
--- NOTE | 2017-12-02 13:09 | Nephrology Progress Note ---
<Vignesh Henao - Last Filed: 12/02/17 15:30> Date of Encounter: 12/02/17 Time of Encounter: 13:09 - Assessment and Plan (1) Hyponatremia Status: Acute Na 116 --> 122 Chronic hyponatremia likely SIADH in the setting of small cell lung cancer Serum osmolarity 251 Uric acid 3.1 Urine osmolarity 361 Urine sodium 67.1 TSH, cortisol level WNL UA negative Patient had hypotensive episode last PM and was given a bolus and NS at 100cc/ hr. Stop IVF due to SIADH, monitor BP Stop Lasix Continue salt tablets Closely monitor sodium levels Continue strict I/Os (3) Acute encephalopathy Status: Acute Management per primary team (4) Lung cancer Status: Chronic Management per oncology Qualifiers: Laterality: left Lung location: overlapping sites Qualified Code(s): C34.82 - Malignant neoplasm of overlapping sites of left bronchus and lung Subjective Principal diagnosis: SCLC Interval history: Pateint seen and examined resting comfortably in bed. Patient had fever and hypotensive episode last PM. He was given a bolus and started on NS at 100cc/ hr. Patient denies any further c/o. Case discussed with nursing at bedside. Objective - Vital Signs Vital signs: Vital Signs Temp Pulse Resp BP Pulse Ox 12/02/17 12:28 98.3 F 107 16 94/60 97 12/02/17 12:27 98.3 F 107 16 94/60 80 12/02/17 08:39 97.3 F L 99 16 92/58 92 12/02/17 08:10 16 91 12/02/17 07:31 95/65 12/02/17 03:52 97.4 F L 112 16 71/46 91 12/01/17 23:32 98.0 F 70 18 91/58 99 12/01/17 23:22 99.2 F 126 24 94/56 94 12/01/17 22:41 99.8 F H 135 32 96/61 92 12/01/17 20:22 16 90 12/01/17 18:30 97.8 F 124 17 140/100 90 12/01/17 15:51 97.3 F L 85 16 117/77 97 Intake and Output 12/01/17 12/02/17 12/02/17 23:59 07:59 15:59 Intake Total 100 / 100 30 / 30 Output Total 150 / 150 400 / 400 Balance -150 / -150 100 / 100 -370 / -370 Intake: IV Fluids 100 / 100 Zosyn 3.375 GM In 0.9 % Sodium 100 / 100 Chloride 100 ML @ 25 mls/hr IVPB Q8HR [facility] Rx#:[id number] Oral Output: Urine 150 / 150 400 / 400 Other: Weight 85.1 kg Blood Glucose* 94 108 Patient Weight 12/02/17 23:59 Weight 85.1 kg - General Appearance General appearance: Present: well-developed, well-nourished, appears started age EENT: Present: ATNC, PERRL, mucous membranes dry Neck: Present: supple Additional Comments: decreased breath sounds Cardiology: Present: no murmurs, no rub, no gallops, edema (2+ pitting edema lower extremities) Gastrointestinal: Present: normoactive bowel sounds, no tenderness, no guarding , no organomegaly Integumentary: Present: no rash, warm and dry Neurologic: Present: no focal deficit, confused Musculoskeletal: Present: deformities (chronic left nare deformity) Additional Comments: unable to assess - Lab 12/02/17 02:57 12/02/17 12:33 Most recent lab results ABG pH 7.43 pH Units (7.32-7.45) 11/30/17 23:14 ABG pCO2 41 mmHg (35-45) 11/30/17 23:14 ABG pO2 69 mmHg (85-104) L 11/30/17 23:14 ABG HCO3 27 mEq/L (21-27) 11/30/17 23:14 ABG O2 Saturation 94 % (95-98) L 11/30/17 23:14 Calcium 7.9 mg/dL (8.6-10.3) L 12/02/17 02:57 Urine Creatinine 83 mg/dL 12/01/17 20:46 Urine Sodium 67.1 mEq/L 12/01/17 20:46 Consult Discharge Plan - Plan Instructions: Hyponatremia (DC), Chronic Hypertension (DC) Additional Instructions: 1.5 L Fluid restriction F/u with nephrology next week. Check labs on Referrals: Cameron Stanton MD [Partnered Physician] - (1 week) [facility] - 12/16/17 10:45 am (Please follow up as schedule...) Prescriptions: Tolvaptan [Samsca] 15 mg PO DAILY #30 tablet <Phillip Garciasameera Waddell - Last Filed: 12/29/17 23:37> Date of Encounter: 12/02/17 Objective - Lab 12/07/17 04:16 12/07/17 04:16 Most recent lab results ABG pH 7.41 pH Units (7.32-7.45) 12/02/17 16:03 ABG pCO2 42 mmHg (35-45) 12/02/17 16:03 ABG pO2 38 mmHg (85-104) L* 12/02/17 16:03 ABG HCO3 27 mEq/L (21-27) 12/02/17 16:03 ABG O2 Saturation 72 % (95-98) L 12/02/17 16:03 Calcium 8.7 mg/dL (8.6-10.3) 12/07/17 04:16 Urine Creatinine 83 mg/dL 12/01/17 20:46 Urine Sodium 67.1 mEq/L 12/01/17 20:46 - Attending Attestation I examined this patient and my medical decision-making was reviewed with the Resident Physician. I agree with the documented findings, disposition and treatment plan as described except to the extent set forth below. Pt seen and examined, episode of hypotension overnight noted with NS bolus given along with maintainenc fluids. sodium improved with likely etiology SIADH with lung cancer. Would recommend stopping IVF which would worse sodium leveln in ADH excess.
--- NOTE | 2017-12-02 14:44 | Electrocardiograph Report ---
[place] [id number] Test Date: 2017-12-02 Pat Name: Jose Vasques Department: 112 Room: 2A Gender: M Ambulatory Care: : 1960 Requested By: Ana Allred Order Number: [id number] Reading MD: Tonio Cruz DO Measurements Intervals [place] Rate: 106 P: 64 FL: 191 QRS: 35 QRSD: 105 T: 53 QT: 307 QTc: 369 Interpretive Statements SINUS TACHYCARDIA Electronically Signed On 12-02-2017 14:42:45 EST by Tonio Cruz DO
[2017-12-02] MEDS ORDERED: RISPERIDONE MICROSPHERES 25 MG/2 ML IM ONE (16:00)
[2017-12-02 16:06] LABS: ABG Base Excess 2 mEq/L (-2 to 3); ABG HCO3 27 mEq/L (21-27); ABG Oxygen Saturation 72 % (95-98); ABG PCO2 42 mmHg (35-45); ABG PH 7.41 pH Units (7.32-7.45); ABG PO2 38 mmHg (85-104); ABG TCO2 28 mEq/L (20-26)
--- NOTE | 2017-12-02 22:59 | Event Note ---
<Brant Garcia - Last Filed: 12/02/17 23:09> Date of Encounter: 12/02/17 Time of Encounter: 22:55 Patient's nurse called concerned regarding patient's sepsis risk based on current sepsis criteria. Nurse reported patient seems fluid overloaded and lungs continue to sound wet so IV fluids discontinued. Oncology consult note reviewed for the following information: Pt. s/p C1 chemotherapy 11/18/17 with carbo/MEDICAL PRACTICE ASSISTANT-16 and neulasta on 11/24. Pancytopenia secondary to chemotherapy treatment, neutrophils 0.4, no s/s infection and afebrile. No role for abx tx at this time. Continue to monitor counts and need for potential transfusions. Admitted w/ AMS/acute encephalopathy, hyponatremia, and pancytopenia. Nurse reports patient is resting comfortably and in no apparent distress. H/H Q6 ordered to monitor need for transfusions. Nurse instructed to notify me of any changes in pts. status or condition. Plan discussed w/Dr. Rodriguez who is in agreement w/plan of care. <Mao Rodriguez - Last Filed: 12/03/17 01:45> Date of Encounter: 12/03/17 Discussed with Ap and I agree.
[2017-12-03 00:37] LABS: Hematocrit 21.7 % (37.5-50.1); Hemoglobin 7.3 g/dL (12.9-16.9)
[2017-12-03 00:39] LABS: Hematocrit 21.8 % (37.5-50.1); Hemoglobin 7.3 g/dL (12.9-16.9); Immature Platelets 7.3 % (1.1-6.1); Lymphocytes # 0.4 K/mcL (0.6-4.6); Mean Corpuscular HGB Conc 33.5 g/dL (31.6-35.5); Mean Corpuscular Hemoglobin 28.2 pg (28.0-33.3); Mean Corpuscular Volume 84.2 fL (83.0-100.0); Mean Platelet Volume 10.4 fL (9.4-12.4); Red Blood Count 2.59 M/mcL (4.19-5.50); Red Cell Distribution Width 14.6 % (11.5-14.5)
[2017-12-03 01:02] LABS: BUN/Creatinine Ratio 19 (6-26); Blood Urea Nitrogen 13 mg/dL (6-20); Carbon Dioxide 27 mEq/L (23-29); Chloride 95 mEq/L (98-107); Glucose 90 mg/dL (70-105); Osmolality,Calculated 258 (280-300); Sodium 124 mEq/L (136-145); eGFR For African Americans > 60 (> 60); eGFR For Non-African Americans > 60 (> 60)
[2017-12-03 01:30] LABS: Platelet Count 36 K/mcL (140-400)
[2017-12-03 01:35] LABS: Neutrophils # 1.8 K/mcL (1.6-8.9); Platelet Estimate Decreased (Normal)
[2017-12-03 01:38] LABS: Dohle Bodies Present (Not Present)
--- NOTE | 2017-12-03 07:16 | Nephrology Progress Note ---
<Vignesh Henao - Last Filed: 12/03/17 16:08> Date of Encounter: 12/03/17 Time of Encounter: 07:15 - Assessment and Plan (1) Hyponatremia Status: Acute Na 116 --> 124 Chronic hyponatremia likely SIADH in the setting of small cell lung cancer Serum osmolarity 251 Uric acid 3.1 Urine osmolarity 361 Urine sodium 67.1 TSH, cortisol level WNL UA negative Hold IVF due to SIADH, monitor BP Hold home Lasix due to hypotension Will give one time dose of Lasix today following blood transfusion due to increased edema. Continue fluid restrictions < 1500cc per day Continue salt tablets Closely monitor sodium levels Continue strict I/Os (3) Acute encephalopathy Status: Acute Management per primary team (4) Lung cancer Status: Chronic Management per oncology Qualifiers: Laterality: left Lung location: overlapping sites Qualified Code(s): C34.82 - Malignant neoplasm of overlapping sites of left bronchus and lung (5) Anemia due to chemotherapy Status: Acute Management per Hem/ Onc Subjective Principal diagnosis: SCLC Interval history: Patent seen and examined sitting up at side of bed. Patient remained afebrile last PM. BP has improved. Patient denies worsening edema in legs or new c/o. Patient has compression stocking on bilateral legs and was encouraged to keep his legs elevated while at rest. Patient is receiving blood transfusion. Objective - Vital Signs Vital signs: Vital Signs Temp Pulse Resp BP Pulse Ox 12/03/17 05:31 97.6 F 98 17 111/69 98 12/03/17 02:56 14 86 12/03/17 00:33 97.9 F 99 17 110/70 98 12/02/17 22:30 92 12/02/17 21:01 97.8 F 107 16 122/78 98 12/02/17 20:38 16 98 12/02/17 12:28 98.3 F 107 16 94/60 97 12/02/17 12:27 98.3 F 107 16 94/60 80 12/02/17 08:39 97.3 F L 99 16 92/58 92 12/02/17 08:10 16 91 12/02/17 07:31 95/65 Intake and Output 12/02/17 12/02/17 12/03/17 15:59 23:59 07:59 Intake Total 1190 / 1190 600 / 600 100 / 100 Output Total 400 / 400 400 / 400 400 / 400 Balance 790 / 790 200 / 200 -300 / -300 Intake: IV Fluids 1100 / 1100 100 / 100 100 / 100 0.9 % Sodium Chloride 1,000 ML 1000 / 1000 @ 100 mls/hr IVC .Q10H [facility] Rx#: [id number] Zosyn 3.375 GM In 0.9 % Sodium 100 / 100 100 / 100 100 / 100 Chloride 100 ML @ 25 mls/hr IVPB Q8HR [facility] Rx#:[id number] Oral 90 / 90 500 / 500 Output: Urine 400 / 400 400 / 400 400 / 400 Other: Meal Lunch turkey sandwich Percent of Meal Consumed 10% 50% Blood Glucose* 108 98 - General Appearance General appearance: Present: well-developed, well-nourished, appears started age EENT: Present: ATNC, PERRL, mucous membranes moist Neck: Present: supple Respiratory: Present: rales (on left, CTA on right), course breath sounds Cardiology: Present: no murmurs, no rub, no gallops, edema (2+ pitting edema right lower extremity, 1+ pitting edema left lower extremity) Integumentary: Present: no rash, warm and dry Neurologic: Present: no focal deficit, alert and oriented x3 Musculoskeletal: Present: deformities (chronic left nare deformity), no cyanosis Psychiatric: Present: mood/affect appropriate, cooperative - Lab 12/03/17 00:21 12/03/17 08:10 Most recent lab results ABG pH 7.41 pH Units (7.32-7.45) 12/02/17 16:03 ABG pCO2 42 mmHg (35-45) 12/02/17 16:03 ABG pO2 38 mmHg (85-104) L* 12/02/17 16:03 ABG HCO3 27 mEq/L (21-27) 12/02/17 16:03 ABG O2 Saturation 72 % (95-98) L 12/02/17 16:03 Calcium 8.0 mg/dL (8.6-10.3) L 12/03/17 00:21 Urine Creatinine 83 mg/dL 12/01/17 20:46 Urine Sodium 67.1 mEq/L 12/01/17 20:46 Consult Discharge Plan - Plan Instructions: Hyponatremia (DC), Chronic Hypertension (DC) Additional Instructions: 1.5 L Fluid restriction F/u with nephrology next week. Check labs on Referrals: Cameron Stanton MD [Partnered Physician] - (1 week) [place],PCP [Primary Care Provider] - 12/16/17 10:45 am (Please follow up as schedule...) Prescriptions: Tolvaptan [Samsca] 15 mg PO DAILY #30 tablet <Loly Garciaily - Last Filed: 12/29/17 23:55> Date of Encounter: 12/03/17 Objective - Lab 12/07/17 04:16 12/07/17 04:16 Most recent lab results ABG pH 7.41 pH Units (7.32-7.45) 12/02/17 16:03 ABG pCO2 42 mmHg (35-45) 12/02/17 16:03 ABG pO2 38 mmHg (85-104) L* 12/02/17 16:03 ABG HCO3 27 mEq/L (21-27) 12/02/17 16:03 ABG O2 Saturation 72 % (95-98) L 12/02/17 16:03 Calcium 8.7 mg/dL (8.6-10.3) 12/07/17 04:16 Urine Creatinine 83 mg/dL 12/01/17 20:46 Urine Sodium 67.1 mEq/L 12/01/17 20:46 - Attending Attestation I examined this patient and my medical decision-making was reviewed with the Resident Physician. I agree with the documented findings, disposition and treatment plan as described except to the extent set forth below. Pt seen and examined, hemodynamic stable today. Sodium up to 124. Continue salt tabs. Continue fluid restriction at 1.5 liter a day. Agree with transfusion pRBCs with iv lasix in between and hold any further lasix given no LE edema at this point.
[2017-12-03] MEDS: Insulin LISPRO 300 UNITS/3 ML VIAL SQ SCH ×4 (08:00→22:09)
--- NOTE | 2017-12-03 09:00 | Internal Med Progress Note ---
Date of Encounter: 12/03/17 Time of Encounter: 08:58 - Assessment and plan (1) Hyponatremia Current Visit: Yes Status: Acute Assessment and plan: Likely secondary to SIADH. Patient seems to have had issues with hyponatremia lately although it is not as bad as this hospitalization. This is slowly improving. Sodium is 124 today. Off IVF and off lasix. nephrology helping out. He has salt tabs ordered. Apparently he takes that at home and I am not sure if she was taking it. Continue with fluid strictures. We will check sodium every 6 hours. (2) Acute encephalopathy Current Visit: Yes Status: Acute Assessment and plan: Metablolic encephalopathy. Seems to have resolved now. Likely due to hyponatremia. CT head is negative. We will continue to monitor. (3) Anemia due to chemotherapy Current Visit: Yes Status: Acute Assessment and plan: hgb noted at 7.3. was 8.4 yesterday. No signs of bleeding. Will give 1 unit PRBCs. check iron studies (4) Neutropenia Current Visit: Yes Status: Inactive Assessment and plan: The patient did have neutropenic fever per night physician's documentation, although I dont see that recorded in EMR . Zosyn has been started. Blood cultures have been collected. UA is negative. We will check a chest x-ray. Likely secondary to chemotherapy. ANC is low and noted. 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 Oncology is consulted. The patient has stage IV cancer. He is already on chemotherapy. Qualifiers: Laterality: left Lung location: overlapping sites Qualified Code(s): C34.82 - Malignant neoplasm of overlapping sites of left bronchus and lung (6) Diabetes Current Visit: Yes Status: Acute Assessment and plan: Continue insulin sliding scale. Continue Accu-Cheks. Qualifiers: Diabetes mellitus type: type 2 Diabetes mellitus complication status: without complication Diabetes mellitus medical terminologist insulin use: without fpc use Qualified Code(s): E11.9 - Type 2 diabetes mellitus without complications (7) Hypertension Current Visit: Yes Status: Acute Assessment and plan: Has low blood pressure. Hold lisinopril. Hold Lasix. Qualifiers: Hypertension type: essential hypertension Qualified Code(s): I10 - Essential (primary) hypertension (8) DVT prophylaxis Current Visit: Yes Status: Acute Assessment and plan: Has thrombocytopenia. SCDs. - Subjective Interval history: Patient was seen and examined. No acute events. more awake this morning.. Admitted 11/30 with what sounds like confusion. afebrile Found to have hyponatremia and nephrology is following. Has a history of small cell lung cancer with metastasis and oncology is following. Recently started chemotherapy. - Constitutional Vitals: Temp Pulse Resp BP Pulse Ox 97.4 F L 104 16 99/62 100 12/03/17 07:33 12/03/17 07:33 12/03/17 07:33 12/03/17 07:33 12/03/17 07:33 Exam: GEN: NAD CVS: RRR. S1, S2, No m/r/g RESP: crackles at bases ABD: Soft, NT, ND, +BS EXT: anasarca. 2+ DP. No rashes NEURO: Nonfocal Internal Medicine: Result - Labs CBC & Chem 7: 12/03/17 00:21 12/03/17 00:21 Labs: Short CBC 12/03/17 12/03/17 Range/Units 00:21 00:21 WBC 2.2 L D (4.3-11.1) K/mcL Hgb 7.3 L 7.3 L (12.9-16.9) g/dL Hct 21.8 L 21.7 L (37.5-50.1) % Plt Count 36 L (140-400) K/mcL Neutrophils # 1.8 (1.6-8.9) K/mcL BMP 12/02/17 12/02/17 12/03/17 12:33 16:41 00:21 Sodium 122 L 124 L 124 L Potassium 4.0 Chloride 95 L Carbon Dioxide 27 BUN 13 Creatinine 0.70 Glucose 90 Calcium 8.0 L - ABG Interpretation ABG results: ABG ABG pH 7.41 pH Units (7.32-7.45) 12/02/17 16:03 ABG pCO2 42 mmHg (35-45) 12/02/17 16:03 ABG pO2 38 mmHg (85-104) L* 12/02/17 16:03 ABG O2 Saturation 72 % (95-98) L 12/02/17 16:03 Consult Discharge Plan - Plan [facility]errals: [facility] [Primary Care Provider] -
[2017-12-03] MEDS: Divalproex (24 HR) 500 MG TABLET PO SCH (09:27)
[2017-12-03] MEDS: Ondansetron ODT 4 MG TAB.RAPDIS PO SCH ×2 (09:27→15:56)
[2017-12-03] MEDS: Lactulose Oral Soln 20 GM/30 ML UDC PO SCH (09:28)
[2017-12-03] MEDS: Aspirin Enteric Coated 81 MG Tablet PO SCH (09:28)
[2017-12-03 10:07] LABS: Folate 13.9 ng/mL (3.0-16.0)
[2017-12-03] MEDS ORDERED: 0.9 % Sodium Chloride 250 ML ONE (10:28)
[2017-12-03 10:47] LABS: Ferritin 234 ng/ml (20-250); Iron < 10 mcg/dL (65-175); Transferrin 147 mg/dL (203-362)
[2017-12-03] MEDS: Budesonide/Formoterol 160/4.5 MDI IH SCH ×2 (10:55→19:49)
--- NOTE | 2017-12-03 15:19 | Oncology Inp Progress Note ---
Date of Encounter: 12/03/17 Time of Encounter: 11:30 (1) Lung cancer Current Visit: Yes Status: Chronic Assessment and plan: He is s/p C1 chemotherapy 11/18/17 with carbo/VP16 and neulasta received on . Dr. Iraheta, treating oncologist, may dose reduce next chemo rx. Admitted with AMS/acute encephalopathy, hyponatremia and pancytopenia. Pancytopenia secondary to chemotherapy treatment stable and improving, neutrophils 0.4 on admission with no found s/s infection at time of admission. Patient afebrile since admission, started on Zosyn, per restaurant shift supervisor provider documentation for documented neutropenic fever, however, I do not see fever charted in EMR. CXR today shows worsened patchy/streaky airspace opacities to the right lower lung zone concerning for worsening atelectasis or infiltrate now with likely a small right pleural effusion as well, stable opacity to the left perihilar/ suprahilar region. This is likely inflammatory/infectious reaction now that patients neutropenia has resolved. Anemia- Hgb 7.3, he received 1 unit PRBC today. Iron level 10, ferritin adequate at 234. While Iron level is low, would not recommend iron replacement at this time since patient is on active treatment and iron stores are sufficient , would recommend replacement as needed with PRBC. Metablolic encephalopathy, resolved, back to baseline. Likely due to hyponatremia. CT head no acute intracranial abnormality. Hyponatremia-Na 124 today, Improving, receiving sodium chloride tabs 1 gram BID , continue to replace. Nephrology recommendations reviewed, holding IVF due to SIADH, monitor BP, holding Lasix due to hypotension Likely secondary to carboplatin and presumed SIADH in the setting of SCLC Qualifiers: Laterality: left Lung location: overlapping sites Qualified Code(s): C34.82 - Malignant neoplasm of overlapping sites of left bronchus and lung Oncology: Subj Interval history: Mr. Vasques is sitting in his chair, currently receiving 1 unit PRBC. He reports he is beginning to feel better and regain his energy. He is alert and oriented x3. He denies pain, SOB, chest pain, H/A, vertigo, nausea, vomiting, diarrhea, visual changes or focal weakness. - Constitutional Vitals: Vital Signs Temp Pulse Resp BP Pulse Ox 12/03/17 15:03 98.3 F 93 16 109/75 97 12/03/17 14:00 98.3 F 95 17 100/64 96 12/03/17 10:59 97.4 F L 101 16 115/80 94 12/03/17 10:57 18 98 12/03/17 10:44 97.5 F L 103 16 122/83 12/03/17 07:33 97.4 F L 104 16 99/62 100 12/03/17 05:31 97.6 F 98 17 111/69 98 12/03/17 02:56 14 86 12/03/17 00:33 97.9 F 99 17 110/70 98 12/02/17 22:30 92 12/02/17 21:01 97.8 F 107 16 122/78 98 12/02/17 20:38 16 98 Intake and Output 12/02/17 12/03/17 12/03/17 23:59 07:59 15:59 Intake Total 600 / 600 100 / 100 300 / 300 Output Total 400 / 400 700 / 700 0 / 0 Balance 200 / 200 -600 / -600 300 / 300 Intake: IV Fluids 100 / 100 100 / 100 Zosyn 3.375 GM In 0.9 % Sodium 100 / 100 100 / 100 Chloride 100 ML @ 25 mls/hr IVPB Q8HR [facility] Rx#:[id number] Oral 500 / 500 Blood Product 300 / 300 Rbcs Leuko Poor As-1 Unit 300 / 300 [id number] Output: Urine 400 / 400 700 / 700 0 / 0 Other: Meal turkey sandwich Percent of Meal Consumed 50% Blood Glucose* 98 136 162 General appearance: cooperative, no acute distress, no febrile - Head Head exam: Present: atraumatic - Respiratory Respiratory exam: Present: CTAB - Cardiovascular Cardiovascular exam: Present: RRR, +S1, +S2 - GI/Abdominal GI/Abdominal exam: Present: normal bowel sounds, soft, tenderness. Absent: guarding, rebound - Extremities Exam Extremities exam: Present: pedal edema. Absent: calf tenderness Additional comments: 2-3+ BLE Edema - Neurological Exam Neurological exam: Present: alert, oriented X3, no focal deficits, strengths equal and symetr throughout Additional comments: slightly drowsy - Psychiatric Psychiatric exam: Present: normal affect, normal mood - Skin Skin exam: Present: pallor, warm Oncology: Obj Data - Labs CBC & Chem 7: 12/03/17 00:21 12/03/17 08:10 - Impressions Impressions Chest X-Ray 12/03/17 09:00 IMPRESSION: Worsened patchy/streaky airspace opacities to the right lower lung zone concerning for worsening atelectasis or infiltrate now with likely a small right pleural effusion as well. Stable opacity to the left perihilar/suprahilar region. D/ / 12/03/2017 09:40:33 Tiburcio Lombardo MD / enrique Interpreting Provider: Tiburcio Lombardo MD - ABG Interpretation ABG results: ABG ABG pH 7.41 pH Units (7.32-7.45) 12/02/17 16:03 ABG pCO2 42 mmHg (35-45) 12/02/17 16:03 ABG pO2 38 mmHg (85-104) L* 12/02/17 16:03 ABG O2 Saturation 72 % (95-98) L 12/02/17 16:03 Consult Discharge Plan - Plan [facility]errals: [facility] [Primary Care Provider] -
[2017-12-03] MEDS ORDERED: Furosemide 20 MG/2 ML VIAL IVP ONE (16:04)
[2017-12-04] MEDS: Ondansetron ODT 4 MG TAB.RAPDIS PO SCH ×4 (00:19→22:31)
[2017-12-04 05:34] LABS: Mean Corpuscular Hemoglobin 28.7 pg (28.0-33.3)
[2017-12-04 05:36] LABS: Basophils % 0.7 %; Hematocrit 24.8 % (37.5-50.1); Hemoglobin 8.5 g/dL (12.9-16.9); Immature Granulocytes % 3.2 % (0-4); Immature Platelets 8.9 % (1.1-6.1); Lymphocytes # 0.6 K/mcL (0.6-4.6); Lymphocytes % 15.5 %; Mean Corpuscular HGB Conc 34.3 g/dL (31.6-35.5); Mean Corpuscular Volume 83.8 fL (83.0-100.0); Mean Platelet Volume 12.1 fL (9.4-12.4); Monocytes # 0.1 K/mcL (0.0-1.3); Monocytes % 2.5 %; Red Blood Count 2.96 M/mcL (4.19-5.50); Red Cell Distribution Width 14.9 % (11.5-14.5); Segmented Neutrophils % 77.1 %
[2017-12-04 05:41] LABS: BUN/Creatinine Ratio 15 (6-26); Blood Urea Nitrogen 9 mg/dL (6-20); Calcium 8.4 mg/dL (8.6-10.3); Carbon Dioxide 22 mEq/L (23-29); Chloride 95 mEq/L (98-107); Glucose 121 mg/dL (70-105); Osmolality,Calculated 258 (280-300); Potassium 4.3 mEq/L (3.5-5.1); Sodium 124 mEq/L (136-145); eGFR For African Americans > 60 (> 60); eGFR For Non-African Americans > 60 (> 60)
[2017-12-04 06:01] LABS: Neutrophils # 3.2 K/mcL (1.6-8.9); Platelet Count 49 K/mcL (140-400)
[2017-12-04 06:02] LABS: Platelet Estimate Decreased (Normal)
[2017-12-04] MEDS: Insulin LISPRO 300 UNITS/3 ML VIAL SQ SCH ×4 (07:58→22:01)
--- NOTE | 2017-12-04 07:58 | Nephrology Progress Note ---
Date of Encounter: 12/04/17 Time of Encounter: 07:58 - Assessment and Plan (1) Hyponatremia Current Visit: Yes Status: Acute Na 116 --> 124 Chronic hyponatremia likely secondary to Carboplatin use and SIADH in the setting of small cell lung cancer Serum osmolarity 251 Uric acid 3.1 Urine osmolarity 361 Urine sodium 67.1 TSH, cortisol level WNL UA negative Hold IVF due to SIADH, monitor BP Hold home Lasix due to hypotension Patient given one time dose of Lasix following blood transfusion due to increased edema. Continue fluid restrictions < 1500cc per day Continue salt tablets Closely monitor sodium levels If no improvement, patient may need Demeclocycline vs Tolvaptan prior to discharge Continue strict I/Os (2) Acute encephalopathy Current Visit: Yes Status: Acute Resolved Management per primary team (3) Lung cancer Current Visit: Yes Status: Chronic Management per oncology Qualifiers: Laterality: left Lung location: overlapping sites Qualified Code(s): C34.82 - Malignant neoplasm of overlapping sites of left bronchus and lung (4) Anemia due to chemotherapy Current Visit: Yes Status: Acute Management per Hem/ Onc Subjective Principal diagnosis: SCLC Interval history: Patent seen and examined sitting up at side of bed. Patient's BP has improved. Patient denies worsening edema in legs or new c/o. Patient has compression stockings on bilateral legs and was encouraged to keep his legs elevated while at rest. Patient's HGB improved after receiving blood transfusion. Objective - Vital Signs Vital signs: Vital Signs Temp Pulse Resp BP Pulse Ox 12/04/17 06:36 97.5 F L 93 18 103/61 97 12/04/17 04:46 97.6 F 95 17 115/76 96 12/04/17 00:51 98 F 97 17 124/75 94 12/03/17 20:37 98 F 100 18 121/81 96 12/03/17 19:49 16 95 12/03/17 15:03 98.3 F 93 16 109/75 97 12/03/17 14:00 98.3 F 95 17 100/64 96 12/03/17 10:59 97.4 F L 101 16 115/80 94 12/03/17 10:57 18 98 12/03/17 10:44 97.5 F L 103 16 122/83 Intake and Output 12/03/17 12/03/17 12/04/17 15:59 23:59 07:59 Intake Total 362 / 362 220 / 220 Output Total 0 / 0 0 / 0 Balance 362 / 362 220 / 220 Intake: IV Fluids 62 100 / 100 Zosyn 3.375 GM In 0.9 % Sodium 62 100 / 100 Chloride 100 ML @ 25 mls/hr IVPB Q8HR [facility] Rx#:[id number] Oral 120 / 120 Blood Product 300 / 300 Rbcs Leuko Poor As-1 Unit 300 / 300 [id number] Output: Urine 0 / 0 0 / 0 Other: Meal Dinner Percent of Meal Consumed 25% Weight 85.1 kg Blood Glucose* 162 146 121 Patient Weight 12/04/17 23:59 Weight 85.1 kg - General Appearance General appearance: Present: well-developed, well-nourished, appears started age EENT: Present: ATNC, PERRL, mucous membranes moist Neck: Present: supple Respiratory: Present: rhonchi (crackles left base, CTA on right) Cardiology: Present: no murmurs, no rub, no gallops, edema (2+ pitting edema right lower extremity, 1+ pitting edema left lower extremity), regular rate, regular rhythm Gastrointestinal: Present: normoactive bowel sounds, no tenderness, no guarding , no organomegaly Integumentary: Present: no rash, warm and dry Neurologic: Present: no focal deficit, alert and oriented x3 Musculoskeletal: Present: deformities (chronic left nare deformity), no erythema , no cyanosis Psychiatric: Present: mood/affect appropriate, cooperative - Lab 12/04/17 04:41 12/04/17 08:16 Most recent lab results ABG pH 7.41 pH Units (7.32-7.45) 12/02/17 16:03 ABG pCO2 42 mmHg (35-45) 12/02/17 16:03 ABG pO2 38 mmHg (85-104) L* 12/02/17 16:03 ABG HCO3 27 mEq/L (21-27) 12/02/17 16:03 ABG O2 Saturation 72 % (95-98) L 12/02/17 16:03 Calcium 8.4 mg/dL (8.6-10.3) L 12/04/17 04:41 Urine Creatinine 83 mg/dL 12/01/17 20:46 Urine Sodium 67.1 mEq/L 12/01/17 20:46 Consult Discharge Plan - Plan [facility]errals: [facility] [Primary Care Provider] -
--- NOTE | 2017-12-04 09:00 | Internal Med Progress Note ---
Date of Encounter: 12/04/17 Time of Encounter: 08:57 - Assessment and plan (1) Hyponatremia Current Visit: Yes Status: Acute Assessment and plan: Likely secondary to SIADH. Patient seems to have had issues with hyponatremia lately although it is not as bad as this hospitalization. This is slowly improving. Sodium is 124 this morning. This may be around the best as we can get him. We will continue to monitor. Off IVF and off lasix. nephrology helping out. He has salt tabs ordered. Continue fluid restrictions Apparently he takes that at home and I am not sure if she was taking it. (2) HCAP (healthcare-associated pneumonia) Current Visit: Yes Status: Acute Assessment and plan: Continue with Zosyn. Follow up on cultures. Collect sputum cultures. Check urine strep and Legionella. We will add nebs. Patient is on room air. (3) Acute encephalopathy Current Visit: Yes Status: Acute Assessment and plan: Metablolic encephalopathy versus infectious. Seems to have resolved now. Likely due to hyponatremia. CT head is negative. We will continue to monitor. (4) Anemia due to chemotherapy Current Visit: Yes Status: Acute Assessment and plan: Hemoglobin 8.5 today. Status post 1 unit of PRBCs. No signs of bleeding. Iron studies noted (5) Neutropenia Current Visit: Yes Status: Inactive Assessment and plan: The patient did have neutropenic fever per night physician's documentation, although I dont see that recorded in EMR . White count is improving. Patient has infiltrate on chest x-ray. We will continue to treat as healthcare associated pneumonia. Zosyn has been started. Blood cultures have been collected. UA is negative. 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 Oncology is consulted. The patient has stage IV cancer. He is already on chemotherapy. Qualifiers: Laterality: left Lung location: overlapping sites Qualified Code(s): C34.82 - Malignant neoplasm of overlapping sites of left bronchus and lung (7) Diabetes Current Visit: Yes Status: Acute Assessment and plan: Continue insulin sliding scale. Continue Accu-Cheks. Qualifiers: Diabetes mellitus type: type 2 Diabetes mellitus complication status: without complication Diabetes mellitus dedicated intermodal truck driver insulin use: without dedicated intermodal truck driver use Qualified Code(s): E11.9 - Type 2 diabetes mellitus without complications (8) Hypertension Current Visit: Yes Status: Acute Assessment and plan: Has low blood pressure. Hold lisinopril. Hold Lasix. Qualifiers: Hypertension type: essential hypertension Qualified Code(s): I10 - Essential (primary) hypertension (9) DVT prophylaxis Current Visit: Yes Status: Acute Assessment and plan: Has thrombocytopenia. SCDs. - Subjective Interval history: Patient was seen and examined. No acute events. Afebrile.. Admitted 11/30 with what sounds like confusion. Found to have hyponatremia and nephrology is following. Has a history of small cell lung cancer with metastasis and oncology is following. Recently started chemotherapy. - Constitutional Vitals: Temp Pulse Resp BP Pulse Ox 97.5 F L 93 18 103/61 97 12/04/17 06:36 12/04/17 06:36 12/04/17 06:36 12/04/17 06:36 12/04/17 06:36 Exam: GEN: NAD CVS: RRR. S1, S2, No m/r/g RESP: crackles at bases ABD: Soft, NT, ND, +BS EXT: anasarca. 2+ DP. No rashes NEURO: Nonfocal Internal Medicine: Result - Labs CBC & Chem 7: 12/04/17 04:41 12/04/17 04:41 Labs: Short CBC 12/04/17 Range/Units 04:41 WBC 4.1 L D (4.3-11.1) K/mcL Hgb 8.5 L (12.9-16.9) g/dL Hct 24.8 L (37.5-50.1) % Plt Count 49 L (140-400) K/mcL Neutrophils # 3.2 (1.6-8.9) K/mcL BMP 12/03/17 12/03/17 12/03/17 08:10 17:41 22:00 Sodium 123 L 124 L 123 L Potassium Chloride Carbon Dioxide BUN Creatinine Glucose Calcium 12/04/17 12/04/17 00:35 04:41 Sodium 124 L 124 L Potassium 4.3 Chloride 95 L Carbon Dioxide 22 L BUN 9 Creatinine 0.61 L Glucose 121 H Calcium 8.4 L - ABG Interpretation ABG results: ABG ABG pH 7.41 pH Units (7.32-7.45) 12/02/17 16:03 ABG pCO2 42 mmHg (35-45) 12/02/17 16:03 ABG pO2 38 mmHg (85-104) L* 12/02/17 16:03 ABG O2 Saturation 72 % (95-98) L 12/02/17 16:03 - Impressions Impressions Chest X-Ray 12/03/17 09:00 IMPRESSION: Worsened patchy/streaky airspace opacities to the right lower lung zone concerning for worsening atelectasis or infiltrate now with likely a small right pleural effusion as well. Stable opacity to the left perihilar/suprahilar region. D/ / 12/03/2017 09:40:33 Tiburcio Lombardo MD / enrique Interpreting Provider: Tiburcio Lombardo MD Consult Discharge Plan - Plan [facility]errals: [facility] [Primary Care Provider] -
[2017-12-04] MEDS: Divalproex (24 HR) 500 MG TABLET PO SCH (10:02)
[2017-12-04] MEDS: Aspirin Enteric Coated 81 MG Tablet PO SCH (10:03)
[2017-12-04] MEDS: Lactulose Oral Soln 20 GM/30 ML UDC PO SCH (10:04)
[2017-12-04] MEDS: Budesonide/Formoterol 160/4.5 MDI IH SCH ×2 (10:29→22:56)
--- NOTE | 2017-12-04 14:30 | Oncology Inp Progress Note ---
<Mirna Ortiz L - Last Filed: 12/04/17 17:58> Date of Encounter: 12/04/17 Time of Encounter: 14:30 (1) Lung cancer Current Visit: Yes Status: Chronic Assessment and plan: He is s/p C1 chemotherapy 11/18/17 with carbo/VP16 and neulasta received on . Admitted with AMS/acute encephalopathy, hyponatremia and pancytopenia. Pancytopenia secondary to chemotherapy treatment stable and improving, he is not neutropenic with ANC 3.2. CXR yesterday shows worsened patchy/streaky airspace opacities to the right lower lung zone concerning for worsening atelectasis or infiltrate now with likely a small right pleural effusion as well, stable opacity to the left perihilar/suprahilar region. This is likely inflammatory/infectious reaction now that his neutropenia has resolved. Anemia- Improved hgb 8.5, he received 1 unit PRBC yesterday. Iron level 10, ferritin adequate at 234. While Iron level is low, would not recommend iron replacement at this time since patient is on active treatment and iron stores are sufficient, would recommend replacement as needed with PRBC. Metablolic encephalopathy, resolved, back to baseline. Likely due to hyponatremia. CT head no acute intracranial abnormality. Hyponatremia-Improving, receiving sodium chloride tabs 1 gram BID, continue to replace. 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 Iraheta. Dr. Iraheta, treating oncologist, may dose reduce next chemo rx. Please refer to Dr. Ramirez's attestation below for further details. Qualifiers: Laterality: left Lung location: overlapping sites Qualified Code(s): C34.82 - Malignant neoplasm of overlapping sites of left bronchus and lung Oncology: Subj Interval history: Mr. Vasques is sitting up on the side of the bed. Reports he is regaining his strength and appetite. Respiratory symptoms continue to improve. - Constitutional Vitals: Vital Signs Temp Pulse Resp BP Pulse Ox 12/04/17 11:00 98.4 F 97 17 122/72 93 12/04/17 10:29 18 97 12/04/17 06:36 97.5 F L 93 18 103/61 97 12/04/17 04:46 97.6 F 95 17 115/76 96 12/04/17 00:51 98 F 97 17 124/75 94 12/03/17 20:37 98 F 100 18 121/81 96 12/03/17 19:49 16 95 12/03/17 15:03 98.3 F 93 16 109/75 97 Intake and Output 12/03/17 12/04/17 12/04/17 23:59 07:59 15:59 Intake Total 220 / 220 100 / 100 Output Total 0 / 0 Balance 220 / 220 100 / 100 Intake: IV Fluids 100 / 100 100 / 100 Zosyn 3.375 GM In 0.9 % Sodium 100 / 100 100 / 100 Chloride 100 ML @ 25 mls/hr IVPB Q8HR [facility] Rx#:[id number] Oral 120 / 120 Output: Urine 0 / 0 Other: Meal Dinner Percent of Meal Consumed 25% Weight 85.1 kg Blood Glucose* 146 121 132 Patient Weight 12/04/17 23:59 Weight 85.1 kg General appearance: cooperative, no acute distress, no febrile - Head Head exam: Present: atraumatic - Respiratory Respiratory exam: Present: decreased breath sounds, CTAB - Cardiovascular Cardiovascular exam: Present: RRR, +S1, +S2 - GI/Abdominal GI/Abdominal exam: Present: normal bowel sounds, soft. Absent: guarding, tenderness - Extremities Exam Extremities exam: Present: pedal edema. Absent: calf tenderness - Neurological Exam Neurological exam: Present: alert, oriented X3, no focal deficits, strengths equal and symetr throughout - Psychiatric Psychiatric exam: Present: normal affect, normal mood - Skin Skin exam: Present: normal color, warm Oncology: Obj Data - Labs CBC & Chem 7: 12/04/17 04:41 12/04/17 08:16 - ABG Interpretation ABG results: ABG ABG pH 7.41 pH Units (7.32-7.45) 12/02/17 16:03 ABG pCO2 42 mmHg (35-45) 12/02/17 16:03 ABG pO2 38 mmHg (85-104) L* 12/02/17 16:03 ABG O2 Saturation 72 % (95-98) L 12/02/17 16:03 Consult Discharge Plan - Plan [facility]: [facility] Provider[facility] - <Ashley,Arturo S - Last Filed: 12/04/17 18:47> Date of Encounter: 12/04/17 - Constitutional Vitals: Vital Signs Temp Pulse Resp BP Pulse Ox 12/04/17 18:36 97.5 F L 93 17 138/85 97 12/04/17 14:52 97.5 F L 90 16 130/83 96 12/04/17 11:00 98.4 F 97 17 122/72 93 12/04/17 10:29 18 97 12/04/17 06:36 97.5 F L 93 18 103/61 97 12/04/17 04:46 97.6 F 95 17 115/76 96 12/04/17 00:51 98 F 97 17 124/75 94 12/03/17 20:37 98 F 100 18 121/81 96 12/03/17 19:49 16 95 Intake and Output 12/04/17 12/04/17 12/05/17 08:59 16:59 00:59 Intake Total 100 / 100 Balance 100 / 100 Intake: IV Fluids 100 / 100 Zosyn 3.375 GM In 0.9 % Sodium 100 / 100 Chloride 100 ML @ 25 mls/hr IVPB Q8HR [facility] Rx#:[id number] Other: Weight 85.1 kg Blood Glucose* 121 58 Patient Weight 12/05/17 00:59 Weight 85.1 kg Oncology: Obj Data - Labs CBC & Chem 7: 12/04/17 04:41 12/04/17 08:16 Labs: Laboratory Results - last 24 hr 12/02/17 12/03/17 12/03/17 20:59 11:53 20:31 WBC RBC Hgb Hct MCV MCH MCHC RDW Plt Count MPV Immature Gran % Seg Neutrophils % Lymphocytes % Monocytes % Eosinophils % Basophils % Neutrophils # Lymphocytes # Monocytes # Eosinophils # Basophils # Platelet Estimate Immature Plt Fraction Sodium Potassium Chloride Carbon Dioxide BUN Creatinine Est GFR ( Amer) Est GFR (Non-Af Amer) BUN/Creatinine Ratio Glucose POC Glucose 98 H 140 H 146 H Calculated Osmolality Calcium 12/03/17 12/04/17 12/04/17 22:00 00:35 04:41 WBC 4.1 L D RBC 2.96 L Hgb 8.5 L Hct 24.8 L MCV 83.8 MCH 28.7 MCHC 34.3 RDW 14.9 H Plt Count 49 L MPV 12.1 Immature Gran % 3.2 Seg Neutrophils % 77.1 Lymphocytes % 15.5 Monocytes % 2.5 Eosinophils % 1.0 Basophils % 0.7 Neutrophils # 3.2 Lymphocytes # 0.6 Monocytes # 0.1 Eosinophils # 0.0 Basophils # 0.0 Platelet Estimate Decreased L Immature Plt Fraction 8.9 H Sodium 123 L 124 L Potassium Chloride Carbon Dioxide BUN Creatinine Est GFR ( Amer) Est GFR (Non-Af Amer) BUN/Creatinine Ratio Glucose POC Glucose Calculated Osmolality Calcium 12/04/17 12/04/17 12/04/17 04:41 07:00 08:16 WBC RBC Hgb Hct MCV MCH MCHC RDW Plt Count MPV Immature Gran % Seg Neutrophils % Lymphocytes % Monocytes % Eosinophils % Basophils % Neutrophils # Lymphocytes # Monocytes # Eosinophils # Basophils # Platelet Estimate Immature Plt Fraction Sodium 124 L 124 L Potassium 4.3 Chloride 95 L Carbon Dioxide 22 L BUN 9 Creatinine 0.61 L Est GFR ( Amer) > 60 Est GFR (Non-Af Amer) > 60 BUN/Creatinine Ratio 15 Glucose 121 H POC Glucose 121 H Calculated Osmolality 258 L Calcium 8.4 L 12/04/17 12/04/17 12/04/17 11:32 13:33 16:30 WBC RBC Hgb Hct MCV MCH MCHC RDW Plt Count MPV Immature Gran % Seg Neutrophils % Lymphocytes % Monocytes % Eosinophils % Basophils % Neutrophils # Lymphocytes # Monocytes # Eosinophils # Basophils # Platelet Estimate Immature Plt Fraction Sodium Potassium Chloride Carbon Dioxide BUN Creatinine Est GFR ( Amer) Est GFR (Non-Af Amer) BUN/Creatinine Ratio Glucose POC Glucose 325 H 132 H 58 Calculated Osmolality Calcium - ABG Interpretation ABG results: ABG ABG pH 7.41 pH Units (7.32-7.45) 12/02/17 16:03 ABG pCO2 42 mmHg (35-45) 12/02/17 16:03 ABG pO2 38 mmHg (85-104) L* 12/02/17 16:03 ABG O2 Saturation 72 % (95-98) L 12/02/17 16:03 - Attending Attestation I examined this patient and my medical decision-making was reviewed with the Advanced Practice Nurse. I agree with the documented findings, disposition and treatment plan as described except to the extent set forth below. Mr. Vasques appears to be recovering. He has a pneumonia which is "fluffed out" in the setting of neutrophil recovery which is to be expected. He is to be continued on broad-spectrum antibiotics but may be transitioned to oral broad spectrum antibiotics in the near future. His hyponatremia is improving as well. I encouraged ambulation moving forward. Hopeful discharge in the next few days.
[2017-12-05 05:38] LABS: Basophils % 0.9 %; Hemoglobin 8.4 g/dL (12.9-16.9); Mean Corpuscular Hemoglobin 28.9 pg (28.0-33.3); Red Blood Count 2.91 M/mcL (4.19-5.50); Red Cell Distribution Width 14.8 % (11.5-14.5)
[2017-12-05 05:40] LABS: Eosinophils % 0.7 %; Hematocrit 24.4 % (37.5-50.1); Immature Granulocytes % 8.9 % (0-4); Immature Platelets 7.8 % (1.1-6.1); Lymphocytes # 0.6 K/mcL (0.6-4.6); Lymphocytes % 13.6 %; Mean Corpuscular HGB Conc 34.4 g/dL (31.6-35.5); Mean Corpuscular Volume 83.8 fL (83.0-100.0); Mean Platelet Volume 10.6 fL (9.4-12.4); Monocytes # 0.2 K/mcL (0.0-1.3); Monocytes % 3.9 %; Neutrophils # 3.2 K/mcL (1.6-8.9); Nucleated Red Blood Cells 0.5 /100 WBC (0)
[2017-12-05 05:59] LABS: Platelet Count 47 K/mcL (140-400)
[2017-12-05 06:02] LABS: Anisocytosis 1+ (Not Present); Platelet Estimate Decreased (Normal)
[2017-12-05 06:04] LABS: BUN/Creatinine Ratio 14 (6-26); Blood Urea Nitrogen 7 mg/dL (6-20); Calcium 8.6 mg/dL (8.6-10.3); Carbon Dioxide 24 mEq/L (23-29); Chloride 93 mEq/L (98-107); Glucose 88 mg/dL (70-105); Osmolality,Calculated 251 (280-300); Potassium 4.9 mEq/L (3.5-5.1); Sodium 122 mEq/L (136-145); eGFR For African Americans > 60 (> 60); eGFR For Non-African Americans > 60 (> 60)
[2017-12-05] MEDS: Insulin LISPRO 300 UNITS/3 ML VIAL SQ SCH ×4 (07:19→21:40)
--- NOTE | 2017-12-05 08:00 | Oncology Inp Progress Note ---
Date of Encounter: 12/05/17 Time of Encounter: 10:15 (1) Hyponatremia Current Visit: Yes Status: Acute Assessment and plan: Indices and clinical scenario most c/w SIADH. Sodium has improved and appreciate nephrology recs. Given decline today, I have started demecloycline 300 mg bid. (2) Lung cancer Current Visit: Yes Status: Chronic Assessment and plan: S/P first cycle chemotherapy. Counts are recovering, and he is clinically improving. Will schedule f/u with Dr. Iraheta after d/c. No acute change in care indicated currently. May be able to deescalate antibiotics to oral therapy today if okay by primary team. Appreciate hospitalist's assistance in care. Qualifiers: Laterality: left Lung location: overlapping sites Qualified Code(s): C34.82 - Malignant neoplasm of overlapping sites of left bronchus and lung Oncology: Subj Interval history: Mr. Vasques is feeling better. Has been ambulating about the room without assist. No fever or chills. Breathing comfortably. Wants to walk about the halls and stretch his legs. No acute issues overnight. Sodium has decreased despite fluid restriction. - Constitutional Vitals: Vital Signs Temp Pulse Resp BP Pulse Ox 12/05/17 06:36 97.6 F 100 18 141/89 93 12/05/17 03:46 97.3 F L 104 18 91 12/04/17 23:49 97.4 F L 102 16 158/91 90 12/04/17 23:35 17 95 12/04/17 18:36 97.5 F L 93 17 138/85 97 12/04/17 14:52 97.5 F L 90 16 130/83 96 12/04/17 11:00 98.4 F 97 17 122/72 93 12/04/17 10:29 18 97 Intake and Output 12/04/17 12/05/17 12/05/17 16:59 00:59 08:59 Intake Total 100 / 100 540 / 540 240 / 240 Output Total 400 / 400 300 / 300 Balance 100 / 100 140 / 140 -60 / -60 Intake: IV Fluids 100 / 100 Zosyn 3.375 GM In 0.9 % Sodium 100 / 100 Chloride 100 ML @ 25 mls/hr IVPB Q8HR [facility] Rx#:[id number] Oral 540 / 540 240 / 240 Output: Urine 400 / 400 300 / 300 Other: Weight 88.677 kg Blood Glucose* 58 71 93 Patient Weight 12/06/17 00:59 Weight 88.677 kg General appearance: average body habitus, cooperative, no acute distress - Head Head exam: Present: atraumatic, normal inspection, normocephalic - Eye Eye exam: Present: conjuntiva pink, sclera anicteric - ENT ENT exam: Present: mucous membranes moist, normal exam, normal oropharynx - Neck Neck exam: Present: full ROM, normal inspection - Respiratory Respiratory exam: Present: decreased breath sounds, rales - Cardiovascular Cardiovascular exam: Present: RRR - GI/Abdominal GI/Abdominal exam: Present: normal bowel sounds, soft - Extremities Exam Extremities exam: Present: normal inspection - Neurological Exam Neurological exam: Present: alert, CN II-XII intact, oriented X3, no focal deficits Oncology: Obj Data - Labs CBC & Chem 7: 12/05/17 05:24 12/05/17 05:24 Labs: Laboratory Results - last 24 hr 12/04/17 12/04/17 12/04/17 07:00 08:16 11:32 WBC RBC Hgb Hct MCV MCH MCHC RDW Plt Count MPV Immature Gran % Seg Neutrophils % Lymphocytes % Monocytes % Eosinophils % Basophils % Neutrophils # Lymphocytes # Monocytes # Eosinophils # Basophils # Nucleated RBCs/100 WBC Platelet Estimate Immature Plt Fraction Anisocytosis Sodium 124 L Potassium Chloride Carbon Dioxide BUN Creatinine Est GFR ( Amer) Est GFR (Non-Af Amer) BUN/Creatinine Ratio Glucose POC Glucose 121 H 325 H Calculated Osmolality Calcium 12/04/17 12/04/17 12/05/17 13:33 16:30 05:24 WBC 4.4 RBC 2.91 L Hgb 8.4 L Hct 24.4 L MCV 83.8 MCH 28.9 MCHC 34.4 RDW 14.8 H Plt Count 47 L MPV 10.6 Immature Gran % 8.9 H Seg Neutrophils % 72.0 Lymphocytes % 13.6 Monocytes % 3.9 Eosinophils % 0.7 Basophils % 0.9 Neutrophils # 3.2 Lymphocytes # 0.6 Monocytes # 0.2 Eosinophils # 0.0 Basophils # 0.0 Nucleated RBCs/100 WBC 0.5 H Platelet Estimate Decreased L Immature Plt Fraction 7.8 H Anisocytosis 1+ A Sodium Potassium Chloride Carbon Dioxide BUN Creatinine Est GFR ( Amer) Est GFR (Non-Af Amer) BUN/Creatinine Ratio Glucose POC Glucose 132 H 58 Calculated Osmolality Calcium 12/05/17 05:24 WBC RBC Hgb Hct MCV MCH MCHC RDW Plt Count MPV Immature Gran % Seg Neutrophils % Lymphocytes % Monocytes % Eosinophils % Basophils % Neutrophils # Lymphocytes # Monocytes # Eosinophils # Basophils # Nucleated RBCs/100 WBC Platelet Estimate Immature Plt Fraction Anisocytosis Sodium 122 L Potassium 4.9 Chloride 93 L Carbon Dioxide 24 BUN 7 Creatinine 0.51 L Est GFR ( Amer) > 60 Est GFR (Non-Af Amer) > 60 BUN/Creatinine Ratio 14 Glucose 88 POC Glucose Calculated Osmolality 251 L Calcium 8.6 - ABG Interpretation ABG results: ABG ABG pH 7.41 pH Units (7.32-7.45) 12/02/17 16:03 ABG pCO2 42 mmHg (35-45) 12/02/17 16:03 ABG pO2 38 mmHg (85-104) L* 12/02/17 16:03 ABG O2 Saturation 72 % (95-98) L 12/02/17 16:03 Consult Discharge Plan - Plan [facility]errals: [facility] [Primary Care Provider] -
[2017-12-05] MEDS: Divalproex (24 HR) 500 MG TABLET PO SCH (10:23)
[2017-12-05] MEDS: Ondansetron ODT 4 MG TAB.RAPDIS PO SCH ×3 (10:23→23:27)
[2017-12-05] MEDS: Lactulose Oral Soln 20 GM/30 ML UDC PO SCH (10:23)
--- NOTE | 2017-12-05 10:23 | Nephrology Progress Note ---
Date of Encounter: 12/05/17 Time of Encounter: 10:22 - Assessment and Plan (1) Diabetes Current Visit: Yes Status: Acute Per primary team. Qualifiers: Diabetes mellitus type: type 2 Diabetes mellitus complication status: without complication Diabetes mellitus manager long term care insulin use: without manager long term care use Qualified Code(s): E11.9 - Type 2 diabetes mellitus without complications (2) HCAP (healthcare-associated pneumonia) Current Visit: Yes Status: Acute Per primary team. (3) Hypertension Current Visit: Yes Status: Acute Blood pressure controlled. Qualifiers: Hypertension type: essential hypertension Qualified Code(s): I10 - Essential (primary) hypertension (4) Hyponatremia Current Visit: Yes Status: Acute Sodium trending back down despite fluid restriction. Will start tolvaptan Continue fluid restriction. (5) Lung cancer Current Visit: Yes Status: Chronic Outpatient management. Qualifiers: Laterality: left Lung location: overlapping sites Qualified Code(s): C34.82 - Malignant neoplasm of overlapping sites of left bronchus and lung Subjective Principal diagnosis: SCLC Interval history: Patient seen. No new complaint. Feels better. Objective - Vital Signs Vital signs: Vital Signs Temp Pulse Resp BP Pulse Ox 12/05/17 06:36 97.6 F 100 18 141/89 93 12/05/17 03:46 97.3 F L 104 18 91 12/04/17 23:49 97.4 F L 102 16 158/91 90 12/04/17 23:35 17 95 12/04/17 18:36 97.5 F L 93 17 138/85 97 12/04/17 14:52 97.5 F L 90 16 130/83 96 12/04/17 11:00 98.4 F 97 17 122/72 93 12/04/17 10:29 18 97 Intake and Output 12/04/17 12/05/17 12/05/17 23:59 07:59 15:59 Intake Total 540 / 540 240 / 240 Output Total 400 / 400 300 / 300 Balance 140 / 140 -60 / -60 Intake: Oral 540 / 540 240 / 240 Output: Urine 400 / 400 300 / 300 Other: Weight 88.677 kg Blood Glucose* 71 93 Patient Weight 12/05/17 23:59 Weight 88.677 kg - General Appearance General appearance: Present: well-developed, well-nourished EENT: Present: ATNC Neck: Present: supple Cardiology: Present: regular rate Integumentary: Present: warm and dry Neurologic: Present: alert and oriented x3 Psychiatric: Present: mood/affect appropriate - Lab 12/05/17 05:24 12/05/17 05:24 Most recent lab results ABG pH 7.41 pH Units (7.32-7.45) 12/02/17 16:03 ABG pCO2 42 mmHg (35-45) 12/02/17 16:03 ABG pO2 38 mmHg (85-104) L* 12/02/17 16:03 ABG HCO3 27 mEq/L (21-27) 12/02/17 16:03 ABG O2 Saturation 72 % (95-98) L 12/02/17 16:03 Calcium 8.6 mg/dL (8.6-10.3) 12/05/17 05:24 Urine Creatinine 83 mg/dL 12/01/17 20:46 Urine Sodium 67.1 mEq/L 12/01/17 20:46 Consult Discharge Plan - Plan [facility]errals: [facility] [Primary Care Provider] -
[2017-12-05] MEDS: Aspirin Enteric Coated 81 MG Tablet PO SCH (10:24)
[2017-12-05] MEDS: Tolvaptan 15 MG TABLET PO SCH (10:36)
[2017-12-05] MEDS: Budesonide/Formoterol 160/4.5 MDI IH SCH ×2 (10:40→20:26)
--- NOTE | 2017-12-05 12:43 | Internal Med Progress Note ---
Date of Encounter: 12/05/17 Time of Encounter: 08:00 - Assessment and plan (1) Hyponatremia Current Visit: Yes Status: Acute Assessment and plan: Likely secondary to SIADH. Worsening. Patient seems to have had issues with hyponatremia lately although it is not as bad as this hospitalization. Demeclocycline is likely to be added. Nephrology is following.We will continue to monitor. Off IVF and off lasix. nephrology helping out. He has salt tabs ordered. Continue fluid restrictions Apparently he takes that at home and I am not sure if she was taking it. (2) HCAP (healthcare-associated pneumonia) Current Visit: Yes Status: Acute Assessment and plan: Continue with Zosyn. Cultures negative. Check urine strep and Legionella. We will add nebs. Patient is on room air. (3) Acute encephalopathy Current Visit: Yes Status: Acute Assessment and plan: Metablolic encephalopathy versus infectious. Seems to have resolved now. Likely due to hyponatremia. CT head is negative. We will continue to monitor. (4) Anemia due to chemotherapy Current Visit: Yes Status: Acute Assessment and plan: Hemoglobin 8.4 today. Status post 1 unit of PRBCs 12/03. No signs of bleeding. Iron studies noted (5) Neutropenia Current Visit: Yes Status: Inactive Assessment and plan: The patient did have neutropenic fever per night physician's documentation, although I dont see that recorded in EMR . White count is improving. Patient has infiltrate on chest x-ray. We will continue to treat as healthcare associated pneumonia. Zosyn has been started. Blood cultures have been collected. UA is negative. 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 Oncology is consulted. The patient has stage IV cancer. He is already on chemotherapy. Qualifiers: Laterality: left Lung location: overlapping sites Qualified Code(s): C34.82 - Malignant neoplasm of overlapping sites of left bronchus and lung (7) Diabetes Current Visit: Yes Status: Acute Assessment and plan: Continue insulin sliding scale. Continue Accu-Cheks. Qualifiers: Diabetes mellitus type: type 2 Diabetes mellitus complication status: without complication Diabetes mellitus moth exterminator insulin use: without snf use Qualified Code(s): E11.9 - Type 2 diabetes mellitus without complications (8) Hypertension Current Visit: Yes Status: Acute Assessment and plan: Has low blood pressure. Hold lisinopril. Hold Lasix. Qualifiers: Hypertension type: essential hypertension Qualified Code(s): I10 - Essential (primary) hypertension (9) Tobacco abuse Current Visit: Yes Status: Acute Assessment and plan: We will offer nicotine patch. (10) DVT prophylaxis Current Visit: Yes Status: Acute Assessment and plan: Has thrombocytopenia. SCDs. - Subjective Interval history: Patient was seen and examined. Patient apparently has been refusing his IV antibiotics. I spoke to him this morning and he is willing to reconsider. He wants to go out and smoke and I advised him not to offered him a nicotine patch which she says would not help. Afebrile. Admitted 11/30 with what sounds like confusion. Found to have hyponatremia and nephrology is following. Has a history of small cell lung cancer with metastasis and oncology is following. Recently started chemotherapy. - Constitutional Vitals: Temp Pulse Resp BP Pulse Ox 98.5 F 66 16 117/53 96 12/05/17 11:00 12/05/17 11:00 12/05/17 11:00 12/05/17 11:00 12/05/17 11:00 Exam: GEN: NAD CVS: RRR. S1, S2, No m/r/g RESP: crackles at bases ABD: Soft, NT, ND, +BS EXT: anasarca. 2+ DP. No rashes NEURO: Nonfocal Internal Medicine: Result - Labs CBC & Chem 7: 12/05/17 05:24 12/05/17 05:24 Labs: Short CBC 12/05/17 Range/Units 05:24 WBC 4.4 (4.3-11.1) K/mcL Hgb 8.4 L (12.9-16.9) g/dL Hct 24.4 L (37.5-50.1) % Plt Count 47 L (140-400) K/mcL Neutrophils # 3.2 (1.6-8.9) K/mcL BMP 12/05/17 05:24 Sodium 122 L Potassium 4.9 Chloride 93 L Carbon Dioxide 24 BUN 7 Creatinine 0.51 L Glucose 88 Calcium 8.6 - ABG Interpretation ABG results: ABG ABG pH 7.41 pH Units (7.32-7.45) 12/02/17 16:03 ABG pCO2 42 mmHg (35-45) 12/02/17 16:03 ABG pO2 38 mmHg (85-104) L* 12/02/17 16:03 ABG O2 Saturation 72 % (95-98) L 12/02/17 16:03 Consult Discharge Plan - Plan [facility]errals: [facility] [Primary Care Provider] -
[2017-12-05] MEDS: Nicotine 21 MG PATCH.TD24 TD SCH (15:42)
[2017-12-06 04:27] LABS: Hematocrit 27.9 % (37.5-50.1); Hemoglobin 9.4 g/dL (12.9-16.9); Mean Corpuscular HGB Conc 33.7 g/dL (31.6-35.5); Mean Corpuscular Hemoglobin 28.7 pg (28.0-33.3); Mean Corpuscular Volume 85.1 fL (83.0-100.0); Mean Platelet Volume 10.7 fL (9.4-12.4); Monocytes # 0.4 K/mcL (0.0-1.3); Nucleated Red Blood Cells 0.6 /100 WBC (0); Red Blood Count 3.28 M/mcL (4.19-5.50)
[2017-12-06 04:33] LABS: Platelet Count 61 K/mcL (140-400)
[2017-12-06 05:00] LABS: BUN/Creatinine Ratio 8 (6-26); Blood Urea Nitrogen 5 mg/dL (6-20); Carbon Dioxide 23 mEq/L (23-29); Chloride 99 mEq/L (98-107); Glucose 110 mg/dL (70-105); Lymphocytes # 2.1 K/mcL (0.6-4.6); Neutrophils # 4.1 K/mcL (1.6-8.9); Osmolality,Calculated 270 (280-300); Platelet Estimate Decreased (Normal); Potassium 5.6 mEq/L (3.5-5.1); Sodium 131 mEq/L (136-145); eGFR For African Americans > 60 (> 60); eGFR For Non-African Americans > 60 (> 60)
[2017-12-06] MEDS: Insulin LISPRO 300 UNITS/3 ML VIAL SQ SCH ×4 (09:41→22:44)
[2017-12-06] MEDS: Lactulose Oral Soln 20 GM/30 ML UDC PO SCH (09:42)
[2017-12-06] MEDS: Divalproex (24 HR) 500 MG TABLET PO SCH (09:42)
[2017-12-06] MEDS: Tolvaptan 15 MG TABLET PO SCH (09:43)
[2017-12-06] MEDS: Aspirin Enteric Coated 81 MG Tablet PO SCH (09:43)
[2017-12-06] MEDS: Ondansetron ODT 4 MG TAB.RAPDIS PO SCH ×2 (09:43→16:55)
[2017-12-06] MEDS: Nicotine 21 MG PATCH.TD24 TD SCH (09:50)
[2017-12-06] MEDS: Budesonide/Formoterol 160/4.5 MDI IH SCH ×2 (09:57→20:07)
--- NOTE | 2017-12-06 10:30 | Internal Med Progress Note ---
Date of Encounter: 12/06/17 Time of Encounter: 08:27 - Assessment and plan (1) Hyponatremia Current Visit: Yes Status: Acute Assessment and plan: Likely secondary to SIADH. Patient's close to being discharged. Possibly tomorrow. Better today with a sodium of 131.. Patient seems to have had issues with hyponatremia lately although it is not as bad as this hospitalization. Demeclocycline dosed yesterday. Also received to Tolvaptan. Nephrology is following.We will continue to monitor. Off IVF and off lasix. nephrology helping out. He has salt tabs ordered. Continue fluid restrictions Apparently he takes that at home and I am not sure if she was taking it. (2) Hyperkalemia Current Visit: Yes Status: Acute Assessment and plan: We will give Kayexalate. (3) HCAP (healthcare-associated pneumonia) Current Visit: Yes Status: Acute Assessment and plan: Switched to Levaquin and oral. Continue nebs. Cultures have been negative. Patient is on room air. Cultures negative. (4) Acute encephalopathy Current Visit: Yes Status: Acute Assessment and plan: Metablolic encephalopathy versus infectious. Seems to have resolved now. Likely due to hyponatremia. CT head is negative. We will continue to monitor. (5) Anemia due to chemotherapy Current Visit: Yes Status: Acute Assessment and plan: Hemoglobin stable. Status post 1 unit of PRBCs 12/03. No signs of bleeding. Iron studies noted (6) Neutropenia Current Visit: Yes Status: Inactive Assessment and plan: The patient did have neutropenic fever per night physician's documentation, although I dont see that recorded in EMR . White count is improving. Patient has infiltrate on chest x-ray. We will continue to treat as healthcare associated pneumonia. Zosyn has been started. Blood cultures have been collected. UA is negative. 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 Oncology is consulted. The patient has stage IV cancer. He is already on chemotherapy. Qualifiers: Laterality: left Lung location: overlapping sites Qualified Code(s): C34.82 - Malignant neoplasm of overlapping sites of left bronchus and lung (8) Diabetes Current Visit: Yes Status: Acute Assessment and plan: Continue insulin sliding scale. Continue Accu-Cheks. Qualifiers: Diabetes mellitus type: type 2 Diabetes mellitus complication status: without complication Diabetes mellitus terminal operations manager insulin use: without nursing home use Qualified Code(s): E11.9 - Type 2 diabetes mellitus without complications (9) Hypertension Current Visit: Yes Status: Acute Assessment and plan: Has low blood pressure. Hold lisinopril. Hold Lasix. Qualifiers: Hypertension type: essential hypertension Qualified Code(s): I10 - Essential (primary) hypertension (10) Tobacco abuse Current Visit: Yes Status: Acute Assessment and plan: nicotine patch. (11) DVT prophylaxis Current Visit: Yes Status: Acute Assessment and plan: Has thrombocytopenia. SCDs. - Subjective Interval history: Patient was seen and examined. He is sitting at bedside eating breakfast. Seems to be in a good mood. Has been no acute events. Afebrile. Admitted with what sounds like confusion. Found to have hyponatremia and nephrology is following. Has a history of small cell lung cancer with metastasis and oncology is following. Recently started chemotherapy. - Constitutional Vitals: Temp Pulse Resp BP Pulse Ox 97.8 F 98 18 118/64 92 12/06/17 04:35 12/06/17 04:35 12/06/17 04:35 12/06/17 04:35 12/06/17 04:35 Exam: GEN: NAD CVS: RRR. S1, S2, No m/r/g RESP: crackles at bases ABD: Soft, NT, ND, +BS EXT: anasarca. 2+ DP. No rashes NEURO: Nonfocal Internal Medicine: Result - Labs CBC & Chem 7: 12/06/17 04:00 12/06/17 04:00 Labs: Short CBC 12/06/17 Range/Units 04:00 WBC 7.0 D (4.3-11.1) K/mcL Hgb 9.4 L (12.9-16.9) g/dL Hct 27.9 L (37.5-50.1) % Plt Count 61 L (140-400) K/mcL Neutrophils # 4.1 (1.6-8.9) K/mcL BMP 12/06/17 04:00 Sodium 131 L D Potassium 5.6 H Chloride 99 Carbon Dioxide 23 BUN 5 L Creatinine 0.66 L Glucose 110 H Calcium 9.0 - ABG Interpretation ABG results: ABG ABG pH 7.41 pH Units (7.32-7.45) 12/02/17 16:03 ABG pCO2 42 mmHg (35-45) 12/02/17 16:03 ABG pO2 38 mmHg (85-104) L* 12/02/17 16:03 ABG O2 Saturation 72 % (95-98) L 12/02/17 16:03 - VTE Documentation of Mechanical Device: Graduated compression elastic hosiery Consult Discharge Plan - Plan [facility]errals: [facility] [Primary Care Provider[facility] -
--- NOTE | 2017-12-06 10:58 | Nephrology Progress Note ---
Date of Encounter: 12/06/17 Time of Encounter: 10:58 - Assessment and Plan (1) Hyponatremia Current Visit: Yes Status: Acute Sodium increased with tolvaptan. Repeat sodium still rising. Will hold tolvaptan and sodium tablets. Will give small amount of free water to bring sodium closer to 130. (2) Diabetes Current Visit: Yes Status: Acute Per primary team. Qualifiers: Diabetes mellitus type: type 2 Diabetes mellitus complication status: without complication Diabetes mellitus fpc insulin use: without intermodal dispatcher use Qualified Code(s): E11.9 - Type 2 diabetes mellitus without complications (3) HCAP (healthcare-associated pneumonia) Current Visit: Yes Status: Acute Per primary team. (4) Hypertension Current Visit: Yes Status: Acute Blood pressure controlled. Titrate antihypertensive medications as needed. Qualifiers: Hypertension type: essential hypertension Qualified Code(s): I10 - Essential (primary) hypertension (5) Lung cancer Current Visit: Yes Status: Chronic Outpatient management. Qualifiers: Laterality: left Lung location: overlapping sites Qualified Code(s): C34.82 - Malignant neoplasm of overlapping sites of left bronchus and lung Subjective Principal diagnosis: SCLC Interval history: Patient seen. No new complaint. Feels better. Objective - Vital Signs Vital signs: Vital Signs Temp Pulse Resp BP Pulse Ox 12/06/17 10:44 97.6 F 78 18 154/98 97 12/06/17 04:35 97.8 F 98 18 118/64 92 12/06/17 00:28 97.6 F 108 18 132/80 97 12/05/17 20:41 97.7 F 101 18 145/84 88 12/05/17 20:26 16 94 12/05/17 15:07 98.7 F 89 18 148/89 95 12/05/17 11:00 98.5 F 66 16 117/53 96 Intake and Output 12/05/17 12/06/17 12/06/17 23:59 07:59 15:59 Intake Total 100 / 100 100 / 100 Output Total 900 / 900 1050 / 1050 Balance -800 / -800 -950 / -950 Intake: IV Fluids 100 / 100 100 / 100 Zosyn 3.375 GM In 0.9 % Sodium 100 / 100 100 / 100 Chloride 100 ML @ 25 mls/hr IVPB Q8HR [facility] Rx#:[id number] Output: Urine 900 / 900 1050 / 1050 Other: Blood Glucose* 71 89 - General Appearance General appearance: Present: well-developed, well-nourished EENT: Present: ATNC Neck: Present: supple Cardiology: Present: regular rate Integumentary: Present: warm and dry Neurologic: Present: alert and oriented x3 Psychiatric: Present: mood/affect appropriate - Lab 12/06/17 04:00 12/06/17 12:50 Most recent lab results ABG pH 7.41 pH Units (7.32-7.45) 12/02/17 16:03 ABG pCO2 42 mmHg (35-45) 12/02/17 16:03 ABG pO2 38 mmHg (85-104) L* 12/02/17 16:03 ABG HCO3 27 mEq/L (21-27) 12/02/17 16:03 ABG O2 Saturation 72 % (95-98) L 12/02/17 16:03 Calcium 9.0 mg/dL (8.6-10.3) 12/06/17 04:00 Urine Creatinine 83 mg/dL 12/01/17 20:46 Urine Sodium 67.1 mEq/L 12/01/17 20:46 - VTE Documentation of Mechanical Device: Graduated compression elastic hosiery Consult Discharge Plan - Plan [facility]errals: [facility] [Primary Care Provider] -
[2017-12-06] MEDS: levoFLOXacin 500 MG TABLET PO SCH (13:18)
[2017-12-06] MEDS ORDERED: D5% in Water 1,000 ML IVC SCH (20:30)
[2017-12-07] MEDS: Ondansetron ODT 4 MG TAB.RAPDIS PO SCH ×2 (00:47→09:36)
[2017-12-07 04:28] LABS: Hematocrit 27.3 % (37.5-50.1); Hemoglobin 9.1 g/dL (12.9-16.9); Mean Corpuscular HGB Conc 33.3 g/dL (31.6-35.5); Mean Corpuscular Hemoglobin 28.3 pg (28.0-33.3); Mean Platelet Volume 10.5 fL (9.4-12.4); Monocytes # 0.4 K/mcL (0.0-1.3); Red Blood Count 3.21 M/mcL (4.19-5.50); Red Cell Distribution Width 15.2 % (11.5-14.5)
[2017-12-07 04:40] LABS: Platelet Count 66 K/mcL (140-400)
[2017-12-07 04:58] LABS: BUN/Creatinine Ratio 6 (6-26); Blood Urea Nitrogen 4 mg/dL (6-20); Calcium 8.7 mg/dL (8.6-10.3); Carbon Dioxide 33 mEq/L (23-29); Chloride 90 mEq/L (98-107); Glucose 81 mg/dL (70-105); Osmolality,Calculated 256 (280-300); Potassium 4.5 mEq/L (3.5-5.1); Sodium 125 mEq/L (136-145); eGFR For African Americans > 60 (> 60); eGFR For Non-African Americans > 60 (> 60)
[2017-12-07 05:27] LABS: Anisocytosis 1+ (Not Present); Lymphocytes # 1.5 K/mcL (0.6-4.6); Macrocytosis Present (Not Present); Neutrophils # 4.2 K/mcL (1.6-8.9); Platelet Estimate Decreased (Normal)
[2017-12-07 05:28] LABS: Large Platelets Present (Not Present)
--- NOTE | 2017-12-07 08:11 | Nephrology Progress Note ---
Date of Encounter: 12/07/17 Time of Encounter: 08:11 - Assessment and Plan (1) Hyponatremia Current Visit: Yes Status: Acute Na 116 --> 125 Chronic hyponatremia likely secondary to Carboplatin use and SIADH in the setting of small cell lung cancer Serum osmolarity 251 Uric acid 3.1 Urine osmolarity 361 Urine sodium 67.1 TSH, cortisol level WNL UA negative Hold IVF due to SIADH, monitor BP Hold home Lasix due to hypotension Continue fluid restrictions < 1500cc per day Discontinue salt tablets Continue Tolvaptan upon discharge Closely monitor sodium level, will need repeat BMP in 2 days (2) Hypertension Current Visit: Yes Status: Acute Blood pressure controlled. Titrate antihypertensive medications as needed. Qualifiers: Hypertension type: essential hypertension Qualified Code(s): I10 - Essential (primary) hypertension (3) Acute encephalopathy Current Visit: Yes Status: Acute Resolved Management per primary team (4) Lung cancer Current Visit: Yes Status: Chronic Management per oncology Qualifiers: Laterality: left Lung location: overlapping sites Qualified Code(s): C34.82 - Malignant neoplasm of overlapping sites of left bronchus and lung (5) Anemia due to chemotherapy Current Visit: Yes Status: Acute Management per Hem/ Onc Subjective Principal diagnosis: SCLC Interval history: Patent seen and examined sitting up at side of bed. Patient denies worsening edema in legs or new c/o. Patient was encouraged to keep his legs elevated while at rest. Patient's sodium level is 125 today near his baseline and he is eager to go home. Objective - Vital Signs Vital signs: Vital Signs Temp Pulse Resp BP Pulse Ox 12/07/17 07:34 97.6 F 85 17 161/82 95 12/07/17 04:06 97.6 F 90 16 132/84 90 12/07/17 00:05 97.6 F 89 16 141/80 92 12/06/17 20:07 18 96 12/06/17 19:26 97.8 F 93 16 135/83 96 12/06/17 16:11 97.8 F 93 16 159/97 95 12/06/17 11:57 97.4 F L 109 14 124/78 91 12/06/17 10:44 97.6 F 78 18 154/98 97 12/06/17 09:57 18 97 Intake and Output 02/04/18 02/05/18 02/05/18 23:59 07:59 15:59 Intake Total 730 / 730 Balance 730 / 730 Intake: Oral 730 / 730 Other: Meal Dinner Percent of Meal Consumed 100% Weight 88.7 kg Blood Glucose* 192 91 Patient Weight 12/07/17 23:59 Weight 88.7 kg - General Appearance General appearance: Present: well-developed, well-nourished, appears started age EENT: Present: ATNC, mucous membranes moist Neck: Present: supple Respiratory: Present: rhonchi (mild crackles left base, CTA on right) Cardiology: Present: no murmurs, no rub, no gallops, edema (2+ pitting edema right lower extremity, 1+ pitting edema left lower extremity), regular rate, regular rhythm Gastrointestinal: Present: normoactive bowel sounds, no tenderness, no guarding Integumentary: Present: warm and dry, chronic venous stasis Neurologic: Present: no focal deficit, alert and oriented x3 Musculoskeletal: Present: deformities (chronic left nare deformity), no erythema , no cyanosis Psychiatric: Present: mood/affect appropriate, cooperative - Lab 12/07/17 04:16 12/07/17 04:16 Most recent lab results ABG pH 7.41 pH Units (7.32-7.45) 12/02/17 16:03 ABG pCO2 42 mmHg (35-45) 12/02/17 16:03 ABG pO2 38 mmHg (85-104) L* 12/02/17 16:03 ABG HCO3 27 mEq/L (21-27) 12/02/17 16:03 ABG O2 Saturation 72 % (95-98) L 12/02/17 16:03 Calcium 8.7 mg/dL (8.6-10.3) 12/07/17 04:16 Urine Creatinine 83 mg/dL 12/01/17 20:46 Urine Sodium 67.1 mEq/L 12/01/17 20:46 - VTE Documentation of Mechanical Device: Graduated compression elastic hosiery Consult Discharge Plan - Plan Additional Instructions: 1.5 L Fluid restriction F/u with nephrology next week. Check labs on Referrals: Cameron Stanton MD [Partnered Physician] - (1 week) [facility] Care [facility] - 12/16/17 10:45 am (Please follow up as schedule...) Prescriptions: levoFLOXacin [Levaquin] 500 mg PO DAILY #3 tablet Tolvaptan [Samsca] 15 mg PO DAILY #30 tablet
--- NOTE | 2017-12-07 08:57 | Discharge Summary ---
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 (7) Lung cancer Priority: Secondary Status: Chronic Qualifiers: Laterality: left Lung location: overlapping sites Qualified Code(s): C34.82 - Malignant neoplasm of overlapping sites of left bronchus and lung (8) Diabetes Priority: Secondary Status: Acute Qualifiers: Diabetes mellitus type: type 2 Diabetes mellitus complication status: without complication Diabetes mellitus terminal carman insulin use: without fci use Qualified Code(s): E11.9 - Type 2 diabetes mellitus without complications (9) Hypertension Priority: Secondary Status: Acute Qualifiers: Hypertension type: essential hypertension Qualified Code(s): I10 - Essential (primary) hypertension (10) Tobacco abuse Priority: Secondary Status: Acute - Discharge Medications Prescriptions: levoFLOXacin [Levaquin] 500 mg PO DAILY #3 tablet Tolvaptan [Samsca] 15 mg PO DAILY #30 tablet Home Medications: Albuterol Sulfate [Albuterol Inhaler] 2 puff IH Q6HR 07/21/17 [History] Aspirin [Lo-Dose Aspirin EC] 81 mg PO DAILY 07/21/17 [History] Benztropine Mesylate 1 mg PO BID 07/21/17 [History] Bisacodyl [Dulcolax] 10 mg PO DAILY 07/21/17 [History] Budesonide/Formoterol 160/4.5 [Symbicort 160/4.5] 2 puff IH BIDR 07/21/17 [ History] Cyclobenzaprine HCl 10 mg PO BID 07/21/17 [History] Divalproex (24 HR) [Depakote ER (24 HR)] 1,500 mg PO DAILY 07/21/17 [History] Docusate Sodium [Colace] 200 mg PO TID 07/21/17 [History] Furosemide [Lasix] 40 mg PO DAILY 07/21/17 [History] Lactulose [Enulose] 15 ml PO DAILY 07/21/17 [History] Lisinopril 2.5 mg PO DAILY 07/21/17 [History] Metformin HCl [Glucophage] 500 mg PO BID 07/21/17 [History] Omeprazole [PriLOSEC] 20 mg PO DAILY 07/21/17 [History] Pravastatin Sodium 10 mg PO DAILY 07/21/17 [History] Quetiapine Fumarate [Quetiapine Fumarate ER] 600 mg PO DAILY 07/21/17 [History] RisperiDONE MICROSPHERES [Risperdal Consta] 50 mg IM Q2W 07/21/17 [History] Tamsulosin HCl [Flomax] 0.4 mg PO DAILY 07/21/17 [History] Magnesium Citrate [Citroma] 296 ml PO QWEEK PRN 10/02/17 [History] Multivit-Min/Iron Fum/Folic AC [Rhtkj-Gohrijf-Cusyzrnt Tablet] 1 each PO DAILY 10/02/17 [History] Naproxen [Naprosyn] 500 mg PO BID PRN 10/02/17 [History] Testosterone [Fortesta] 60 gm TD DAILY 10/21/17 [History] Urea [Nerissa Lo 40] 236.6 ml TP DAILY 10/21/17 [History] Dexamethasone [Decadron] 4 mg PO BID #36 tab 11/05/17 [Rx] Magic Mouthwash [Magic Mouthwash BLM] 10 ml PO QID PRN #240 ml 11/05/17 [Rx] Ondansetron [Zofran] 8 mg PO Q8HR #60 tablet 11/05/17 [Rx] Prochlorperazine Maleate [Compazine] 10 mg PO Q8HR PRN #60 tablet 11/05/17 [Rx] Allopurinol [Zyloprim 100 MG] 300 mg PO DAILY 12/02/17 [History] Tolvaptan [Samsca] 15 mg PO DAILY #30 tablet 12/07/17 [Rx] levoFLOXacin [Levaquin] 500 mg PO DAILY #3 tablet 12/07/17 [Rx] Allergies/Adverse Reactions: 3 Allergy/AdvReac Type Severity Reaction Status Date / Time No Known Allergies Allergy Verified 11/30/17 11:19 Date of admission: 11/30/17 23:42 [facility] physician: [facility] Consults: 11/30/17 23:34 Consult to Oncology [CONS] Routine Consulting Provider: [facility] [place] Reason for Consult: Small cell carcinoma of lung with neutropenia and hyponatremia Call Completed: No 11/30/17 23:40 Consult to Speech Therapy [CONS] Routine Comment: Evaluate, develop and implement POC Reason for Consult: AMS Call Completed: No 12/01/17 10:55 Consult to Nephrology [CONS] Routine Consulting Provider: [facility]/NILDA/BEBA/NNAMDI Reason for Consult: hyponatremia Call Completed: Yes 12/03/17 08:55 Consult to Occupational Therapy [CONS] Routine Comment: Evaluate, develop and implement POC Reason for Consult: therapy/placement needs Consult to Physical Therapy [CONS] Routine Comment: Evaluate, develop and implement POC Reason for Consult: PT eval - Patient Status Disposition: Home, Self-Care Condition: Fair Overall status at discharge: patient is progressing back to baseline - Discharge Instructions Instructions: Hyponatremia (DC), Chronic Hypertension (DC) Follow Up With: [facility],PCP [Primary Care Provider] - 12/16/17 10:45 am (Please follow up as schedule...) Cameron Stanton MD [Partnered Physician] - (1 week) Additional Instructions: 1.5 L Fluid restriction F/u with nephrology next week. Check labs on - Diet and Activity Activity: increase activity as tolerated Diet: diabetic diet (1.5 L fluid restriction) Hospital course: Mr. Vasques is a 57 year old male with history of stage IV small cell lung cancer, prior squamous cell carcinoma of the lung, skin cancer which has since been excised, schizophrenia and multiple psychiatric concerns, recent admission for hyponatremia and neutropenia, recent initiation of chemotherapy for small cell lung cancer who presented [place] [facility] at the recommendation of his oncologist Dr. Iraheta. According to oncology note the patient began chemotherapy approximately 1- 2 weeks ago. He presented to the ED today with altered status not fully understanding why he was there, and some generalized weakness and fatigue. The patient is a long-term member of a fpc. His CT head was unremarkable. He was found to have severe hyponatremia and Leukopenia with a low ANC. We had oncology and nephrology see the patient. Initial sodium was 116. He was put on fluid restrictions as was suspected that it was secondary to SIADH. His sodium did, however was slowly coming up. He was given Tolvaptan and Demeclocycline. Sodium did come up to 135 day prior to discharge but he was given a small dose of free water after that due to the rest correction. He did come back down to 125. Nephrology was aware. The patient was hemodynamic stable and he was alert and oriented 3. He seems to have chronic hyponatremia over the last couple months with sodium fluctuating in the mid 120s to upper 120s. They are okay with him being discharged on Tolvaptan with a BMP in a couple of days. He will follow-up with them. While hospitalized patient was seen by oncology and his ANC improved. He did have a febrile episode and chest x-ray showed infiltrates and he was started on IV antibiotics and was switched to oral Levaquin and was discharged on that to treat Pneumonia. He also transfused him 1 unit of PRBCs as his hemoglobin was 7.1 at some point while he is hospitalized. No signs of bleeding was suspected this is secondary to chemotherapy. On day of discharge his hemoglobin was 9.1. He was stable for discharge on 12/07/2017 with follow-up with his PCP as well as nephrology and his oncologist. - Time Spent with Patient Total time spent providing and/or coordinating discharge services: Greater than 30 minutes - Constitutional Vitals: Temp Pulse Resp BP Pulse Ox 97.6 F 85 17 161/82 95 12/07/17 07:34 12/07/17 07:34 12/07/17 07:34 12/07/17 07:34 12/07/17 07:34 Exam: GEN: NAD CVS: RRR. S1, S2, No m/r/g RESP: crackles at bases ABD: Soft, NT, ND, +BS EXT: anasarca. 2+ DP. No rashes NEURO: Nonfocal - VTE Documentation of Mechanical Device: Graduated compression elastic hosiery
[2017-12-07] MEDS: Insulin LISPRO 300 UNITS/3 ML VIAL SQ SCH ×2 (09:30→11:57)
[2017-12-07] MEDS: Divalproex (24 HR) 500 MG TABLET PO SCH (09:35)
[2017-12-07] MEDS: Lactulose Oral Soln 20 GM/30 ML UDC PO SCH (09:35)
[2017-12-07] MEDS: levoFLOXacin 500 MG TABLET PO SCH (09:35)
[2017-12-07] MEDS: Aspirin Enteric Coated 81 MG Tablet PO SCH (09:35)
[2017-12-07] MEDS: Nicotine 21 MG PATCH.TD24 TD SCH (09:36)
[2017-12-07] MEDS: Budesonide/Formoterol 160/4.5 MDI IH SCH (11:02)
[2017-12-07 11:45] VITALS: BP 149/89
== END 2017-12-07 12:36 | disposition home or self-care (01) | DRG 643 ==
LOC: 2ANU
PROVIDERS: ADMIT Internal Medicine; ATTEND Family Medicine